=== PATIENT | female | born 1935 | race Caucasian/White ===

== ENCOUNTER → 2017-06-20 | Outpatient (CLI) | payer MEDICARE, OTHER ==
[~2017-06-20] MED LIST: ACTONEL 35 MG35 M1 PO; ASPIR 8181 MG PO; ATORVASTATIN CA40 MG PO; ATROVENT; BUSPIRONE HCL10 MG PO; CENTRUM SILVER1 EAC4 PO; CLOBETASOL PROP50 ML TOP; CLONIDINE HCL0.3 M3 PO; COLACE100 MG PO; DIOVAN 80 MG TA80 M1 PO; FISH OIL 1,001000 M2 PO; FISH OIL 1,2001 EAC4 PO; FLECAINIDE ACET50 M2 PO; FLONASE 0.05%50 MCG NASAL; FOLIC ACID1 MG PO; LANTUSSOLASTAR SUBQ; LEVEMIR SUBQ; LIPITOR 20 MG T20 M1 PO; LOPRESSOR100 M1 PO; MIRALAX17 GM PO; NORVASC5 MG PO; NOVOLOG100 UNIT/1 SUBQ; PIOGLITAZONE15 MG PO; PRINIVIL20 MG PO; PRINIVIL40 MG PO; PROLIA60 MG/1 ML SUBQ; TEMOVATE15 GM TP; TOPROL XL100 MG PO; TOPROL XL50 MG PO; TOUJEO SOL300 UNIT/1 SUBQ; VITAMIN D1000 UNI1 PO; VITAMIN D31000 UNI2 PO; XANAX 0.25 MG0.25 MG PO; XARELTO15 MG PO
--- NOTE | 2017-06-30 12:09 | SLEEP ---
[address] [address] SLEEP STUDY REPORT Name: TASHAROXANNE Ceballos Room: [facility]#: [id number] Admission: 06/20/17 Attend Phys: Elisabet Auguste Discharge: Date of : 31 Report #: [id number] THIS REPORT FOR: //name// CC: Shaka Auguste This study has been reviewed in its entirety by a board certified sleep specialist DATE OF SERVICE: 06/20/2017 ATTENDING PROVIDERS: Shaka Calero MD and Elisabet Auguste, nurse practitioner. The patient is an 81-year-old female with loud snoring and ringing in her ears. She has some restless sleep and some insomnia symptoms. Overnight sleep study indicated to evaluate for obstructive sleep apnea. The patient had overnight inhouse sleep study. Total sleep time was 3 hours and 18 minutes. Sleep phases, N1 was 6%, N2 was 94%. There was no N3 or REM sleep noted. The patient had minimal loud snoring. She did not have any O2 desaturations. She had no apneas, no obstructive or central apneas. She had an occasional arousal. No increase in limb movements noted. Mild O2 desaturation was noted 53% of time and her lowest O2 sat was 77%. Her average O2 sat was 90%. IMPRESSION: No significant obstructive sleep apnea. The patient did have nocturnal O2 desaturation down to 77%, spent most of time around 83-90% of her desaturation. There were 110 minutes of O2 desaturation, 53% of the total study. The patient may be a candidate for supplemental oxygen 2 liters at night. Other PFTs and workup for hypoxemia should be considered. No complications to the above procedure. <ELECTRONICALLY SIGNED> By: Jose Arce MD 06/30/17 1209 1444 1559Antthai Arce MD /nt
== END ==
LOC: M.SLEEPLAB 06-19 20:00
DX: G47.30 Sleep apnea, unspecified (principal); I12.9 Hypertensive chronic kidney disease with stage 1 through stage 4 chronic kidney disease, or unspecified chronic kidney disease; E11.22 Type 2 diabetes mellitus with diabetic chronic kidney disease; N18.3 Chronic kidney disease, stage 3 (moderate); F41.9 Anxiety disorder, unspecified; I48.0 Paroxysmal atrial fibrillation; E78.2 Mixed hyperlipidemia; Z79.899 Other long term (current) drug therapy; Z79.4 Long term (current) use of insulin

== ENCOUNTER → 2017-07-21 | Outpatient (CLI) | payer MEDICARE, OTHER | LOC: M.RAD 14:09 | DX: J90 Pleural effusion, not elsewhere classified (principal); J98.11 Atelectasis; I48.91 Unspecified atrial fibrillation; J92.9 Pleural plaque without asbestos; E11.8 Type 2 diabetes mellitus with unspecified complications ==

== ENCOUNTER → 2017-10-04 | Outpatient (CLI) | payer MEDICARE, OTHER ==
[2017-10-04 13:46] LABS: ABSOLUTE BASOPHILS 0.1 thou/uL (0.0-0.2); ABSOLUTE EOSINOPHILS 0.1 thou/uL (0.0-0.7); ABSOLUTE LYMPHOCYTES 1.2 thou/uL (0.8-5.3); ABSOLUTE MONOCYTES 0.6 thou/uL (0.0-1.2); BASOPHILS 1.1 %; HEMATOCRIT 34.5 % (37.0-47.0); HEMOGLOBIN 11.7 gm/dL (12.0-15.0); LYMPHOCYTES 17.5 %; MCH 31.7 pg (26.0-34.0); MCHC 33.7 g/dL (28.0-37.0); MCV 93.8 fL (80.0-100.0); MONOCYTES 8.6 %; MPV 7.9 fl. (7.2-11.1); NUCLEATED RBCS 0 /100WBC; PLATELET COUNT* 324 thou/uL (150-400); POLYS 70.8 %; RBC 3.68 mil/uL (4.20-5.00); RDW-CV 14.7 % (10.5-14.5); WBC 7.1 thou/uL (4.0-11.0)
[2017-10-05 02:07] LABS: GLYCOHEMOGLOBIN (HGB A1C) 7.6 % (4.8-5.6)
== END ==
LOC: M.LAB 13:09
PROVIDERS: Registered Nurse Diabetes Educator
DX: E11.8 Type 2 diabetes mellitus with unspecified complications (principal); I12.9 Hypertensive chronic kidney disease with stage 1 through stage 4 chronic kidney disease, or unspecified chronic kidney disease; N18.9 Chronic kidney disease, unspecified; E78.5 Hyperlipidemia, unspecified; I48.91 Unspecified atrial fibrillation; M81.0 Age-related osteoporosis without current pathological fracture; Z79.4 Long term (current) use of insulin; Z79.899 Other long term (current) drug therapy

== ENCOUNTER → 2017-10-09 | Outpatient (CLI) | payer MEDICARE, OTHER | LOC: M.RAD 14:09 | DX: M81.0 Age-related osteoporosis without current pathological fracture (principal); I10 Essential (primary) hypertension; E78.5 Hyperlipidemia, unspecified; E11.9 Type 2 diabetes mellitus without complications; I48.91 Unspecified atrial fibrillation; Z78.0 Asymptomatic menopausal state ==

== ENCOUNTER 2018-10-13 15:01 | Inpatient (IN) | payer MEDICARE, OTHER ==
[~2018-10-13] VITALS: Ht 162.6 cm; Wt 67.6 kg
[~2018-10-13 15:01] MED LIST changes: -ATORVASTATIN CA40 MG PO; -CLONIDINE HCL0.3 M3 PO; +CLONIDINE0.1 PO; -FLECAINIDE ACET50 M2 PO; +LIPITOR40 MG PO; -PRINIVIL40 MG PO; -XANAX 0.25 MG0.25 MG PO; +XANAX 0.5 MG0.5 MG PO
[2018-10-13] MEDS ORDERED: NIFEDIPINE ER30 M1 PO (16:09)
[2018-10-13 16:14] VITALS: BP 167/56
[2018-10-13] MEDS ORDERED: MIRALAX17 GM PO (16:25)
[2018-10-13] MEDS ORDERED: FISH OIL 1,001000 M2 PO (16:26)
[2018-10-13] MEDS ORDERED: LASIX 20 MG TAB20 MG PO (16:27)
[2018-10-13] MEDS ORDERED: FLECAINIDE ACET50 M2 PO (16:32)
--- NOTE | 2018-10-13 16:49 | NUR ---
VSS, ASSUMED CARE OF PT OF PT FROM EMS, ASSESSMENT PERFORMED AND CHARTED, FALL PRECAUTIONS IN PLACE, PT IS UP AD ANAHY AND IS ON RA AND IS TRACING AFIB ON THE MONITOR, SHE DENIES ANY PAIN. I HAVE REACHED OUT TO DR MENA ABOUT HER ARRIVAL, WILL FOLLOW WITH PLAN OFC ARE AND HOURLY ROUNDS,
[2018-10-13 17:24] LABS: MCH 31.5 pg (26.0-34.0); MCHC 33.5 g/dL (28.0-37.0); MCV 94.2 fL (80.0-100.0); MPV 7.9 fl. (7.2-11.1); RBC 3.5 mil/uL (4.20-5.00); RDW-CV 13.1 % (10.5-14.5); WBC 6.1 thou/uL (4.0-11.0)
[2018-10-13 17:36] LABS: CALCIUM 8.4 mg/dL (8.5-10.1); CREATININE 2.3 mg/dL (0.6-1.3); POTASSIUM 4.2 mmol/L (3.5-5.1)
--- NOTE | 2018-10-13 18:31 | NUR ---
ASSUSSMED CARE OF PT APPROX 1650. REPORT RECIEVED FROM ADMITING NURSE. PT DENIES PAIN. MEDICATION GIVEN CHARTED. PT NEEDS MET. FAMILY AT BEDSIDE
[2018-10-13 20:00] VITALS: BP 191/71
[2018-10-14] VITALS: BP 188/77
[2018-10-14 04:00] VITALS: BP 184/79
--- NOTE | 2018-10-14 04:28 | NUR ---
PT ALERT ORIENTED. UP AD ANAHY IN ROOM. TELEMETRY SHOWS SR/ST. INTERMITTENT BBB WITH 1ST DEGREE AVB. IN ROOM ON COT.
--- NOTE | 2018-10-14 04:51 | NUR ---
INITAL BP THIS SHIFT 191/71. DR MENA HERE ON UNIT.CONTINUE WITH HOME BP MEDS. NO PRN MEDS. TRACK TRENDS IN BP.
[2018-10-14 08:00] VITALS: BP 189/65
[2018-10-14 12:00] VITALS: BP 167/54
[2018-10-14 16:00] VITALS: BP 171/70
--- NOTE | 2018-10-14 17:46 | NUR ---
RECEIVED REPORT FROM MODESTO TONY. ASSUMED CARE OF PT AROUND 0730. PT A&O X4, A BIT FORGETFUL AT TIMES. VSS, THOUGH PT BRADYCARDIC THIS AFTERNOON AND THIS EVENING, HR DOWN TO 28 FOR BRIEF MOMENTS. PT ASYMPTOMATIC WITH BRADYCARDIA. DR MAURO PAGED DURING BOTH BRADYCARDIC TIMES, NO ORDERS THE FIRST TIME (AROUND 1300). ORDERS RECEVIED FOR MEDICATION CHAGNES THE SECOND TIME, AROUND 1740. AM ASSESSMENT AND VITALS COMPLETED CHARTED. MASTER AUTOMOTIVE GLASS TECHNICIAN IN PLACE TRACING SR TO SB WITH 1ST DEGREE AV BLOCK. AND OTHER VISITORS AT BEDSIDE OFF AND ON THROUGHOUT THE SHIFT. PT HAS DENIED PAIN OR DISCOMFORT THIS SHIFT. PT TOLERATING DIET. UP TO BATHROOM - ABLE TO HAVE BM, VOIDING WITHOUT ISSUE. PT CURRENTLY SITTING UP EATING DINNER. CALL LIGHT IS WITHIN REACH. HOURLY ROUNDING PERFORMED. LOW FALL RISK PRECAUTIONS IN PLACE.
[2018-10-14 20:00] VITALS: BP 186/68
[2018-10-15] VITALS (7 sets, daily range): BP systolic 120–199; BP diastolic 46–97
--- NOTE | 2018-10-15 06:37 | NUR ---
ASSUMED PT CARE AT 1930. NURSING ASSESMENT COMPLETED AT START OF SHIFT. PT DENIES PAIN. HYDROGEN CELL TENDER IN PLACE, TRACING SB 1D. HOURLY ROUNDING COMPLETED, CALL LIGHT WITHIN REACH. NPO FOR RENAL ULTRASOUND. PT FORGETFUL/EPISODES OF CONFUSION THIS SHIFT. PT REORIENTED TO SITUATION.
--- NOTE | 2018-10-15 12:36 | 2DMMODE ---
[place] [address] 2 D/M-MODE ECHOCARDIOGRAM Name: ROXANNE CORDOVA Room: [address] IN [facility]#: [id number] Admission: 10/13/18 Attend Phys: Zahraa Zaragoza, Discharge: Date of : 33 Date of Service: 10/15/18 1236 Report #: [id number] THIS REPORT FOR: //name// APPROVED REPORT Study performed: 10/15/2018 10:48:48 EXAM: Comprehensive 2D, Doppler, and color-flow Echocardiogram Patient Location: In-Patient Room #: 220 Status: routine BSA: 1.70 HR: 61 bpm BP: 120/60 mmHg Rhythm: NSR Other Information Study Quality: Good Indications Atrial Fibrillation 2D Dimensions IVSd: 11.39 (7-11mm) LVOT Diam: 17.53 (18-24mm) LVDd: 41.99 mm PWd: 9.39 (7-11mm) Ascending Ao: 31.47 (22-36mm) LVDs: 24.93 (25-40mm) Aortic Root: 26.84 mm Volumes Left Atrial Volume (Systole) LA ESV Index: 32.20 mL/m2 Aortic Valve AoV Peak Klever.: 1.34 m/s AO Peak Gr.: 7.16 mmHg LVOT Max P.54 mmHg AO Mean Gr.: 4.09 mmHg LVOT Mean P.23 mmHg LVOT Max V: 1.07 m/s AO V2 VTI: 36.37 cm LVOT Mean V: 0.69 m/s BATOOL (VTI): 2.05 cm2 LVOT V1 VTI: 30.85 cm Mitral Valve MV Decel. Time: 221.66 ms MV PHT: 64.28 ms MVA (PHT): 3.42 [place] [address] 2 D/M-MODE ECHOCARDIOGRAM Name: TASHAROXANNE J Room: [address] IN [facility].#: [id number] Admission: 10/13/18 Attend Phys: Zahraa Zaragoza, Discharge: Date of : 33 Date of Service: 10/15/18 1236 Report #: [id number] TDI Medial E' Klever.: 0.07 m/s Lateral E' Klever.: 0.07 m/s Pulmonary Valve PV Peak Klever.: 0.85 m/s PV Peak Gr.: 2.87 mmHg Tricuspid Valve RAP Estimate: 5.00 mmHg TR Peak Gr.: 28.92 mmHg RVSP: 33.00 mmHg PA Pressure: 33.00 mmHg Left Ventricle The left ventricle is normal size. There is normal LV segmental wall motion. There is normal left ventricular wall thickness. Left ventricular systolic function is normal. The left ventricular ejection fraction is within the normal range. LVEF is 60%. The left ventricular diastolic function is normal. Right Ventricle The right ventricle is normal size. The right ventricular systolic function is normal. Atria The left atrium size is normal. The right atrium size is normal. Aortic Valve Mild aortic valve sclerosis. No aortic regurgitation is present. There is no aortic valvular stenosis. Mitral Valve The mitral valve is normal in structure. Mild mitral regurgitation. No evidence of mitral valve stenosis. Tricuspid Valve The tricuspid valve is normal in structure. Trace tricuspid regurgitation. Mild pulmonary hypertension. Pulmonic Valve The pulmonary valve is normal in structure. There is no pulmonic valvular regurgitation. Great Vessels The aortic root is normal in size. IVC [place] [address] 2 D/M-MODE ECHOCARDIOGRAM Name: ROXANNE CORDOVA Room: [address]#: [id number] Admission: 10/13/18 Attend Phys: Zahraa Zaragoza, Discharge: Date of : 33 Date of Service: 10/15/18 1236 Report #: [id number] collapses >50% with inspiration. Pericardium There is no pericardial effusion. <Conclusion> The left ventricle is normal size. There is normal left ventricular wall thickness. Left ventricular systolic function is normal. The left ventricular ejection fraction is within the normal range. LVEF is 60%. The right ventricle is normal size. The left atrium size is normal. Mild aortic valve sclerosis. No aortic regurgitation is present. There is no aortic valvular stenosis. The mitral valve is normal in structure. Mild mitral regurgitation. The tricuspid valve is normal in structure. IVC is normal in size and collapses >50% with inspiration. There is no pericardial effusion. There is normal LV segmental wall motion. <ELECTRONICALLY SIGNED> By: David Mclain MD, [facility] 10/15/18 1236 1236 1236 David Mclain MD, FACC /INF
--- NOTE | 2018-10-15 14:11 | NUR ---
Pt is A&O. Resides at home with her . Independent. Pt has a walker and cane at home that she used post broken knee cap, Pt does not use either of them at this time. Hx of [facility]. No hx of SNF. Goal is home at [place]. No needs anticipated. Following.
--- NOTE | 2018-10-15 20:10 | NUR ---
I ASSUMED CARE OF THE PATIENT AT 0700. SHE IS ALERT AND ORIENTED X4 AND IS UP AD ANAHY. HER IS AT THE BEDSIDE. BED IS IN THE LOW LOCKED POSITION ADN CALL LIGHT IS IN REACH. HOURLY ROUNDING IS COMPLETED AND PATIENT NEEDS ARE MET. PAIN IS DENIED. HEARTRATE IS LOW MOST OF THE DAY. BLOOD SUGAR IS MANAGED WITH ACHS MEDS. RENAL ULTRASOUND WAS COMPLETED TODAY. MOST MEDS HAVE BEEN HELD. POSSIBLE PACEMAKER PLACEMENT TOMORROW. WILL CONTINUE TO MONITOR.
[2018-10-16] VITALS (8 sets, daily range): BP systolic 145–177; BP diastolic 50–86
--- NOTE | 2018-10-16 04:59 | NUR ---
PT ALERT ORIENTED. ANXIOUS RE: HEART RATE. PT AND COMING TO [place] STATION APPROX 5 TIMES TO CHECK ON HEART RATE. XANAX GIVEN HS. TELEMETRY SHOW ST/SR/SB 1ST DEGREE AVB. PT NPO SINCE [place] FOR PACE MAKER PLACEMENT REPORTED PER DAY SHIFT.
--- NOTE | 2018-10-16 09:10 | NUR ---
ASSUMED CARE OF PT AT 0730. PT RESTING IN BED. AT BEDSIDE. PT A&0X3, FORGETFUL AND CONFUSED AT TIMES. EASILY REDIRECTABLE. PT TRACING SB WITH FIRST DEGREE, HEART RATE IN THE 50'S THIS AM. PT ON RA SAT 97%. PT DENIES ANY PAIN OR SHORTNESS OF BREATH AT THIS TIME. PT UP WITH 1 ASSIST SBA. PT NPO AT THIS TIME FOR CARDIOLOGY CONSULT. PT GOAL FOR TODAY IS MAINTAIN SBP LESS THAN 150 AND HEART RATE ABOVE 50. AM ASSESSMENT CHARTED. MEDICATIONS PER MAY. PT REPOSITIONS SELF. HOURLY ROUNDING OBSERVED. BED IN LOW POSITION. CALL LIGHT WITHIN REACH. WILL CONTINUE PLAN OF CARE.
--- NOTE | 2018-10-16 09:25 | EKG ---
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: : 1935 Requested By: Zahraa Zaragoza Order Number: [id number] Reading MD: José Miguel Gillette Measurements Intervals [place] Rate: 57 P: -51 KS: 194 QRS: 63 QRSD: 114 T: 56 QT: 496 QTc: 483 Interpretive Statements Sinus or ectopic atrial rhythm Borderline intraventricular conduction delay Compared to ECG 02/03/2017 08:05:26 Ectopic atrial rhythm now present Sinus rhythm no longer present T-wave abnormality no longer present Electronically Signed On 10-16-2018 9:25:31 CDT by José Miguel Gillette [email or web address] <ELECTRONICALLY SIGNED> By: José Miguel Gillette MD, FACC 10/16/18 0925 1716 1716 José Miguel Gillette MD, [facility] /EPI
--- NOTE | 2018-10-16 09:27 | EKG ---
[place] [address] ELECTROCARDIOGRAM REPORT Name: STEPHANIEPJ KINGE Tucker Room: [address] ADM IN M.R.#: [id number] Admission: 10/13/18 Attend Phys: Zahraa Zaragoza MD Discharge: Date of : 33 Report #: [id number] THIS REPORT FOR: //name// [facility] Test Date: 2018-10-14 Test Time: 00:55:29 Pat Name: ROXANNE CORDOVA Department: Room: [address] Gender: F Manager Social: [id number] : 1935 Requested By: Zahraa Zaragoza Order Number: [id number] Eleuterio MD: José Miguel Gillette Measurements Intervals [place] Rate: 57 P: 94 UT: 47 QRS: 66 QRSD: 114 T: 209 QT: 412 QTc: 401 Interpretive Statements Sinus rhythm Short UT interval Nonspecific T-wave flattening Compared to ECG 02/03/2017 08:05:26 Short UT interval now present Electronically Signed On 10-16-2018 9:27:49 CDT by José Miguel Gillette [email or web address] <ELECTRONICALLY SIGNED> By: José Miguel Gillette MD, FACC 10/16/18 0927 0055 0055 José Miguel Gillette MD, [facility] /EPI
--- NOTE | 2018-10-16 10:37 | EKG ---
[place] [address] ELECTROCARDIOGRAM REPORT Name: ROXANNE CORDOVA Room: [address] ADM IN M.R.#: [id number] Admission: 10/13/18 Attend Phys: Zahraa Zaragoza MD Discharge: Date of : 33 Report #: [id number] THIS REPORT FOR: //name// [facility] Test Date: 2018-10-15 Test Time: 17:27:07 Pat Name: ROXANNE CORDOVA Department: Room: [address] Gender: F Vp Clinical Research: : 1935 Requested By: José Miguel Gillette Order Number: [id number] Eleuterio MD: José Miguel Gillette Measurements Intervals [place] Rate: 40 P: NV: QRS: 52 QRSD: 129 T: 37 QT: 573 QTc: 468 Interpretive Statements sinus bradycardia with sinus node dysfunction and junctional escape Compared to ECG 02/03/2017 08:05:26 T-wave abnormality no longer present Electronically Signed On 10-16-2018 10:37:12 CDT by José Miguel Gillette [email or web address] <ELECTRONICALLY SIGNED> By: José Miguel Gillette MD, [facility] 10/16/18 1037 1727 172 José Miguel Gillette MD, [facility] /EPI
[2018-10-16 11:12] LABS: APTT 28.3 Seconds (25.0-31.3); PROTIME 10.4 Seconds (9.20-11.50)
[2018-10-16 11:16] LABS: CREATININE 2.4 mg/dL (0.6-1.3); POTASSIUM 4.2 mmol/L (3.5-5.1)
--- NOTE | 2018-10-16 18:04 | NUR ---
OBTAINED REPORT FROM JARETH RN, PT OFF UNIT FOR PACEMAKER PLACEMENT. WILL PASS REPORT ON TO OPERATING THEATRE TECHNICIAN.
--- NOTE | 2018-10-16 18:14 | CON ---
[address] [address] CONSULTATION Name: TASHAROXANNE Tucker Room: [address] IN .R.#: [id number] Admission: 10/13/18 Attend Phys: Zahraa Zaragoza MD Discharge: Date of : 33 Report #: [id number] THIS REPORT FOR: //name// CC: Shaka Zaragoza INDICATION: Recurrent atrial fibrillation and hypertension. HISTORY OF PRESENT ILLNESS: The patient is a very pleasant 82-year-old white female, who presented to [facility] with recurrent atrial fibrillation. She was transferred to [place] for further treatment. She initially had a rapid ventricular response rate to her atrial fibrillation. She did convert to sinus rhythm briefly on diltiazem drip. She became somewhat bradycardic and this was discontinued. At present, she is in atrial fibrillation with a fairly controlled ventricular response rate. She has been on flecainide for rhythm control and chronically anticoagulated with Xarelto. She is having no bleeding problems. She is presently stable. She denies chest pain. She is not having any significant shortness of breath. She does have rather significant renal insufficiency as well. During hospitalization and prior to hospitalization, the patient has been noted to be significantly hypertensive. We are adjusting medications. PAST MEDICAL HISTORY: 1. Paroxysmal atrial fibrillation. 2. Appendiceal carcinoma status post resection. 3. Arthritis. 4. Chronic diastolic heart failure. 5. Chronic renal insufficiency. 6. Type 2 diabetes mellitus. 7. Hypothyroidism. 8. Glaucoma. 9. Hypertension. 10. Hyperlipidemia. 11. History of iron deficiency anemia. 12. Nephrolithiasis. 13. Osteoporosis. 14. History of peptic ulcer. PAST SURGICAL HISTORY: 1. Aortic bifurcation stent graft. 2. Cholecystectomy. 3. Hysterectomy. FAMILY HISTORY: Positive for coronary artery disease. SOCIAL HISTORY: The patient quit smoking over 40 years ago. [place] [address] CONSULTATION Name: ROXANNE CORDOVA Room: [address]#: [id number] Admission: 10/13/18 Attend Phys: Zahraa Zaragoza MD Discharge: Date of : 33 Report #: [id number]. REVIEW OF SYSTEMS: A 14-point review of systems is otherwise unremarkable. PHYSICAL EXAMINATION: VITAL SIGNS: Stable. Blood pressure 167/54, pulse in the 90s and irregular. GENERAL: This is a pleasant elderly female in no distress. Mood and affect appropriate. HEENT: The patient is wearing glasses. Extraocular muscles intact. Mucous membranes moist. NECK: Shows no jugular venous distention. There are no carotid bruits. CHEST: Reveals clear lung gunderson without wheezes or rales. CARDIOVASCULAR: Reveals an irregularly irregular rhythm without gallop or murmur. ABDOMEN: Reveals normal bowel sounds. The abdomen is soft, nontender. EXTREMITIES: Shows no edema. DIAGNOSTIC DATA: A 12-lead EKG on arrival shows sinus bradycardia without acute ST or T-wave abnormalities. Telemetry currently showing atrial fibrillation with a relatively controlled ventricular response. LABORATORY DATA: Labs are reviewed. Sodium 140, potassium 4.2, chloride 106, bicarbonate 27, BUN 40, creatinine 2.3, serum glucose 305, calcium 8.4. LFTs within normal limits. Troponin less than 0.06. White blood cell count 6.1, hemoglobin 11.0, MCV 94.2, platelet count 282,000. Chest x-ray shows mild air trapping consistent with COPD. There is some mild atelectasis. IMPRESSION AND RECOMMENDATIONS: 1. Recurrent atrial fibrillation. At this point in time, I will give a bolus of flecainide in an attempt to cardiovert and then increase her daily dose 200 mg b.i.d. Continue chronic anticoagulation with Xarelto. 2. Hypertension. The patient's blood pressure is improving with resumption of home medications. We will follow and make adjustments if necessary. 3. Chronic diastolic heart failure, appears well compensated at this time. 4. Hypercoagulable state due to atrial fibrillation. The patient is chronically anticoagulated. 5. Hyperlipidemia. Continue atorvastatin at current dose. 6. Type 2 diabetes mellitus per primary physician. 7. Non-rheumatic mitral valve insufficiency, repeating echocardiogram at this [address] [place] [address] CONSULTATION Name: STEPHANIEFERNANDOROXANNE Tucker Room: [address] IN [facility].#: [id number] Admission: 10/13/18 Attend Phys: Zahraa Zaragoza MD Discharge: Date of : 33 Report #: [id number] time. 8. Chronic anticoagulation, presently stable. <ELECTRONICALLY SIGNED> By: José Miguel Gillette MD, FACC 10/16/18 1814 1315 1533Michael Jabier Gillette MD, FACC /nt
[2018-10-17] VITALS: BP 135/75
--- NOTE | 2018-10-17 04:39 | NUR ---
PATIENT PROGRESSING TOWARDS GOALS: VSS ON ROOM AIR. PATIENT RECEIVED TYLENOL FOR PAIN AT PACEMAKER SITE, RELIEF OBTAINED. PATIENT FORGETFUL AND CONFUSED AT TIMES, REDIRECTED EASILY. SHOULDER IMMOBILIZER ON FOR POST PACEMAKER PRECAUTIONS. PATIENT REMAINS IN AFIB, RATE CONTROLLED. CALL LIGHT WITHIN REACH
[2018-10-17 05:15] VITALS: BP 142/65
[2018-10-17 05:19] VITALS: BP 142/65
[2018-10-17 08:00] VITALS: BP 119/49
[2018-10-17 10:58] VITALS: BP 119/49
--- NOTE | 2018-10-17 12:19 | NUR ---
RECEIVED REPORT AND ASSUMED CARE OF PT @ 8739.PT IS A/O X3,VSS,TRACING V PACED ON THE MONITOR.LEFT ARM SECURE IN IMMOBILIZER DUE TO PACEMAKER PLACEMENT.IV SECURE AND PATENT, SALINE LOCKED.PT AND ARE ANXIOUS TO DISCHARGE.NO C/O PAIN.PT LEFT RESTING IN ROOM WITH CALL LIGHT AND FALL PRECAUTIONS IN PLACE. PT OK FOR DISCHARGE.PAPERWORK COMPLETED AND GIVEN TO THE PT.SCRIPTS GIVEN WITH EDUCATION.POST PACEMAKER PLACEMENT EDUCATION GIVEN.IV REMOVED.HEART MONITOR REMOVED AND RETURNED TO THE NURSING STATION.ALL PERSONAL BELONGINGS PACKED AND TAKEN WITH THE PT.PT WANTS TO STAY TO EAT LUNCH THEN WILL BE WHEELED OUT TO PERSONAL VEHICLE.
[2018-10-17 12:36] VITALS: BP 103/45
--- NOTE | 2018-10-18 09:01 | EKG ---
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 : 1935 Requested By: José Miguel Gillette Order Number: [id number] Eleuterio MD: José Miguel Gillette Measurements Intervals [place] Rate: 85 P: VT: QRS: 73 QRSD: 122 T: -30 QT: 435 QTc: 518 Interpretive Statements Atrial fibrillation Nonspecific intraventricular conduction delay Borderline repolarization abnormality Baseline wander in lead(s) V3 Compared to ECG 10/15/2018 17:27:07 AV block, advanced (high-grade) now present Intraventricular conduction delay now present Sinus bradycardia no longer present Electronically Signed On 10-18-2018 9:01:16 CDT by José Miguel Gillette [email or web address] <ELECTRONICALLY SIGNED> By: José Miguel Gillette MD, FACC 10/18/18900 0 0 José Miguel Gillette MD, FAC /EPI
--- NOTE | 2018-10-18 10:27 | CARD ---
[address] [address] CARDIAC CATH REPORT Name: STEPHANIEJEREMYJOSUÉROXANNE Tucker Room: [address] IN [facility]#: [id number] Admission: 10/13/18 Attend Phys: Zahraa Zaragoza MD Discharge: 10/17/18 Date of : 33 Report #: [id number] THIS REPORT FOR: //name// APPROVED REPORT Study performed: 10/16/2018 16:53:18 Patient Status: In-Patient Room #: 220 Event Personnel: José Miguel Gillette Industrial Health Engineer, Latanya Farris RN Sap Analyst, Héctor NewtonIS Scrub, Ronel Lanier Monitor Exam: Insertion of Dual Chamber Permanent Pacemaker The patient is a 82 year-old female with a history of . Conscious Sedation Start time: 1720 End Time: 1750 Fentanyl 50 mcg Versed 2.0 mg Implanted Devices: Biotronik Eluna 8 DRT pro-MRI, model #989485, serial #[id number] dual-chamber pulse generator. Biotronik Solia S 53, model #554833, serial #[id number] ventricular lead. Biotronik Solia S 45, model #763549, serial #[id number] atrial lead. Procedure The patient underwent informed consent. We discussed the details of the procedure including the risks, which include, but not limited to bleeding, infection, vascular damage, cardiac perforation, and pneumothorax. After informed consent was obtained the area of the left chest was prepped and draped in sterile fashion. Local anesthesia was achieved with 1% lidocaine. After an initial incision was made a device pocket was formed over the left pectoralis muscle using electrocautery and blunt dissection. Next using a micropuncture kit the left subclavian vein was accessed percutaneously. Ultimately a safety J guidewire was advanced to the level of the right atrium under fluoroscopic guidance. Utilizing the micropuncture kit a second time the subclavian vein was then accessed. A second safety J guidewire was advanced to the right atrium under fluoroscopic guidance. Next a 7 Urdu tear-away introducer was advanced over one of the guidewires. The dilator and guidewire were removed and a ventricular lead advanced to a secure position within the right ventricular apex. The lead was actively fixed. Thresholds were checked and deemed to be satisfactory. Adequate sensing was [place] [address] CARDIAC CATH REPORT Name: ROXANNE CORDOVA Room: [address]#: [id number] Admission: 10/13/18 Attend Phys: Zahraa Zaragoza MD Discharge: 10/17/18 Date of : 33 Report #: [id number] diaphragmatic stimulation with maximum output pacing. The tear-away introducer was then removed. Next a second 7 Urdu tear-away introducer was advanced over the remaining guidewire. The dilator and guidewire were removed and an atrial lead advanced to the right atrial appendage under fluoroscopic guidance. He was actively fixed. Thresholds were checked and deemed to be satisfactory. Adequate sensing was assured. There was no phrenic nerve stimulation with maximum output pacing. Tear-away introducer was then removed. Next after adequate slack was assured and the atrial and ventricular leads and device pocket using the designated cuff and 0 silk suture. The device pocket was then flushed with antibiotic solution. A dual-chamber pulse generator was then attached to the atrial and ventricular leads. The generator and redundant lead were then placed within the device pocket. The deep tissues were closed with interrupted stitches of 2-0 Vicryl. The skin incision was then closed with a single subcuticular stitch of 4-0 Vicryl. Several Steri-Strips were placed across the incision. A Telfa pad dressing was then covered with a Tegaderm. The patient tolerated the procedure well without complication. Return to her room in stable condition. Electrode Parameters P Wave: 430 mV R Wave: 15.7 mV Ventricular Threshold: 1.2 V at 0.40 ms. Atrial Resistance: 429 Ventricular Resistance: 760 ohms Findings Specimens Removed: No Estimated Blood Loss: 0 Conclusion 1. Sick sinus syndrome. 2. Successful placement of a dual-chamber pacemaker with atrial and ventricular lead placement. Recommendations 1. Follow-up site check in one week. 2. Follow-up device interrogation in 2 months. <ELECTRONICALLY SIGNED> By: José Miguel Gillette MD, [facility] 10/18/18 1026 1026 1026[facility] Jabier Gillette MD, FAC /INF
== END 2018-10-17 12:57 | disposition home or self-care (01) | DRG 242 ==
LOC: M.2W 15:01
PROVIDERS: Internal Medicine; ADMIT Internal Medicine
PROC: 02HK3JZ Insertion of Pacemaker Lead into Right Ventricle, Percutaneous Approach (ICD-10-PCS; principal; 2018-10-16)
PROC: 02H63JZ Insertion of Pacemaker Lead into Right Atrium, Percutaneous Approach (ICD-10-PCS; principal; 2018-10-16)
PROC: 0JH606Z Insertion of Pacemaker, Dual Chamber into Chest Subcutaneous Tissue and Fascia, Open Approach (ICD-10-PCS; principal; 2018-10-16)
DX: I49.5 Sick sinus syndrome (principal); G92 Toxic encephalopathy; I13.0 Hypertensive heart and chronic kidney disease with heart failure and stage 1 through stage 4 chronic kidney disease, or unspecified chronic kidney disease; N18.4 Chronic kidney disease, stage 4 (severe); I50.32 Chronic diastolic (congestive) heart failure; D68.59 Other primary thrombophilia; I48.0 Paroxysmal atrial fibrillation; M19.90 Unspecified osteoarthritis, unspecified site; E11.22 Type 2 diabetes mellitus with diabetic chronic kidney disease; E03.9 Hypothyroidism, unspecified; H40.9 Unspecified glaucoma; E78.5 Hyperlipidemia, unspecified; M81.0 Age-related osteoporosis without current pathological fracture; I34.0 Nonrheumatic mitral (valve) insufficiency; D64.9 Anemia, unspecified; Z88.1 Allergy status to other antibiotic agents; Z90.710 Acquired absence of both cervix and uterus; Z90.49 Acquired absence of other specified parts of digestive tract; Z79.01 Long term (current) use of anticoagulants; Z82.49 Family history of ischemic heart disease and other diseases of the circulatory system; Z87.442 Personal history of urinary calculi; Z87.891 Personal history of nicotine dependence; Z88.8 Allergy status to other drugs, medicaments and biological substances; R59.0 Localized enlarged lymph nodes; I16.0 Hypertensive urgency

== ENCOUNTER 2018-10-22 09:23 | Inpatient (IN) | payer MEDICARE, OTHER ==
[~2018-10-22] VITALS: Ht 162.6 cm; Wt 68.5 kg
--- NOTE | ~2018-10-22 | CON ---
[address] [address] CONSULTATION Name: TASHAROXANNE J Room: [address] IN ..#: [id number] Admission: 10/22/18 Attend Phys: Zahraa Zaragoza MD Discharge: Date of : 33 Report #: [id number] THIS REPORT FOR: //name// CC: Shaka Zaragoza [facility] DATE OF SERVICE: 10/23/2018 REQUESTING PHYSICIAN: Dr. Zaragoza. REASON FOR CONSULTATION: Acute kidney injury. HISTORY OF PRESENT ILLNESS: The patient is a very pleasant 82-year-old female very well known to me as she follows with me in my office for her chronic kidney disease stage 4. She presents with complaints of not feeling well, having some dyspnea. In the Emergency Room, she was found to be in atrial fibrillation again and blood pressure is uncontrolled. Unfortunately, her blood pressure is very difficult to control. She is on 5 blood pressure medications. The creatinine on admission was 3.1 and today 3.4, this is above her baseline. Baseline creatinine around 2.4. PAST MEDICAL HISTORY: 1. Chronic kidney disease stage 4. 2. Hypertension. 3. Diabetes mellitus type 2. 4. Atrial fibrillation. 5. Cardiomyopathy. SOCIAL HISTORY: She does not smoke cigarettes, does not drink alcohol. MEDICATIONS: Prior to admission reviewed. From my standpoint, she was on lisinopril 20 mg twice a day, metoprolol XL 100 mg twice a day, clonidine, nifedipine, and furosemide. Here in the hospital. Her clonidine was increased to 0.2 mg twice a day. REVIEW OF SYSTEMS: Positive for the symptoms as I mentioned earlier, otherwise all systems reviewed and negative. SOCIAL HISTORY: Noncontributory. PHYSICAL EXAMINATION: GENERAL: Awake, alert, and oriented. VITAL SIGNS: Blood pressure 145/67, heart rate 66, respiratory rate 14, [place] [address] CONSULTATION Name: ROXANNE CORDOVA Room: [address] IN [facility]#: [id number] Admission: 10/22/18 Attend Phys: Zahraa Zaragoza MD Discharge: Date of : 33 Report #: [id number] HEENT: Pupils round. NECK: Supple. LUNGS: Decreased air movements. CARDIOVASCULAR: Regular rate. ABDOMEN: Soft. EXTREMITIES: Lower extremities, trace edema. LABORATORY DATA: Her chest x-ray showed some evidence of congestive heart failure. She did have some small bilateral pleural effusion, pulmonary vascular congestion. Renal ultrasound showed mild cortical thinning bilaterally. No evidence of hydronephrosis or obstruction. ASSESSMENT: 1. Acute kidney injury on top of the chronic kidney disease that could be due to poor perfusion because of the chronic atrial fibrillation. She also has poorly controlled hypertension. 2. Chronic kidney disease stage 4. 3. Diabetes mellitus type 2. 4. Hypertension. 5. Chronic atrial fibrillation. PLAN: 1. Stop her lisinopril. 2. Make sure blood pressure is controlled. 3. Follow on chest x-ray and make sure her congestive heart failure is compensated. We may increase her Lasix if necessary. 3. Follow labs. Thank you very much for asking my opinion on acute kidney injury of the patient. By: 1109 [id number] Brady MD /nt
[~2018-10-22 09:23] MED LIST changes: +FLECAINIDE ACET50 M2 PO; +LASIX 20 MG TAB20 MG PO; +NIFEDIPINE ER30 M1 PO
[2018-10-22 09:24] VITALS: BP 183/97
[2018-10-22 09:59] LABS: HEMATOCRIT 31.9 % (37.0-47.0); HEMOGLOBIN 10.5 gm/dL (12.0-15.0); MCH 31.9 pg (26.0-34.0); MCV 96.7 fL (80.0-100.0); MPV 9.1 fl. (7.2-11.1); NUCLEATED RBCS 0 /100WBC; PLATELET COUNT* 278 thou/uL (150-400); RDW-CV 13.4 % (10.5-14.5); WBC 12.5 thou/uL (4.0-11.0)
[2018-10-22 10:07] LABS: CREATININE 3.1 mg/dL (0.6-1.3); POTASSIUM 5.5 mmol/L (3.5-5.1)
[2018-10-22 10:19] LABS: TOTAL BILIRUBIN 0.8 mg/dL (<0.1-1.0); TOTAL PROTEIN 6.6 g/dL (6.4-8.2); TROPONIN-I LEVEL 0.1 ng/mL (<0.06)
[2018-10-22 10:21] LABS: INR 1.1; PROTIME 10.9 Seconds (9.20-11.50)
[2018-10-22 10:42] LABS: ABSOLUTE LYMPHOCYTES 0.4 thou/uL (0.8-5.3); ABSOLUTE MONOCYTES 0.1 thou/uL (0.0-1.2); PLATELET ESTIMATE ADEQUATE
[2018-10-22 11:58] VITALS: BP 203/117
[2018-10-22 12:10] VITALS: BP 176/84
[2018-10-22 12:44] VITALS: BP 149/83
[2018-10-22 16:00] VITALS: BP 168/87
--- NOTE | 2018-10-22 16:25 | 2DMMODE ---
[place] [address] 2 D/M-MODE ECHOCARDIOGRAM Name: ROXANNE CORDOVA Room: 228-P [facility] IN [facility]#: [id number] Admission: 10/22/18 Attend Phys: Zahraa Zaragoza, Discharge: Date of : 31 Date of Service: 10/22/18 1624 Report #: [id number] THIS REPORT FOR: //name// APPROVED REPORT Study performed: 10/22/2018 15:05:39 EXAM: Limited 2D, Doppler, and color-flow Echocardiogram Patient Location: In-Patient Room #: 228 Status: routine BSA: 1.70 HR: 77 bpm BP: 149/83 mmHg Rhythm: NSR Other Information Study Quality: Good Indications Congestive Heart Failure Dyspnea re-evaluate EF Volumes Left Atrial Volume (Systole) LA ESV Index: 37.80 mL/m2 Tricuspid Valve RAP Estimate: 10.00 mmHg TR Peak Gr.: 59.16 mmHg RVSP: 69.00 mmHg PA Pressure: 69.00 mmHg Left Ventricle The left ventricle is normal size. Regional wall motion abnormalities are noted. apical akinesis There is normal left ventricular wall thickness. Left ventricular systolic function is mildly decreased. LVEF is 40-45%. Right Ventricle The right ventricle is normal size. The right ventricular systolic function is normal. Pacemaker lead is present in the right ventricle. Atria Left atrium is mildly dilated. Right [place] [address] 2 D/M-MODE ECHOCARDIOGRAM Name: ROXANNE CORDOVA Room: [address] IN M.R.#: [id number] Admission: 10/22/18 Attend Phys: Zahraa Zaragoza, Discharge: Date of : 31 Date of Service: 10/22/18 1624 Report #: [id number] Aortic Valve Mild aortic valve sclerosis. No aortic regurgitation is present. There is no aortic valvular stenosis. Mitral Valve The mitral valve is normal in structure. Moderate mitral regurgitation. Tricuspid Valve The tricuspid valve is normal in structure. Moderate tricuspid regurgitation. estimated pa pressure 70 mm Hg Pulmonic Valve The pulmonary valve is normal in structure. Great Vessels The aortic root is normal in size. IVC is dilated. Pericardium There is no pericardial effusion. <Conclusion> LVEF is 40-45%. Regional wall motion abnormalities are noted. apical akinesis Left atrium is mildly dilated. Moderate mitral regurgitation. Moderate tricuspid regurgitation. estimated pa pressure 70 mm Hg <ELECTRONICALLY SIGNED> By: Shaka Zambrano MD, [facility] 10/22/18 1624 1624 1624 Shaka Zambrano MD, FACC /INF
--- NOTE | 2018-10-22 17:17 | EKG ---
[place] [address] ELECTROCARDIOGRAM REPORT Name: TASHAROXANNE Ceballos Room: [address] ADM IN ..#: [id number] Admission: 10/22/18 Attend Phys: Zahraa Zaragoza MD Discharge: Date of : 33 Report #: [id number] THIS REPORT FOR: //name// [facility] ED Test Date: 2018-10-22 Test Time: 09:38:34 Pat Name: ROXANNE CORDOVA Department: Room: 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 : 1935 Requested By: Rehan Griffin Order Number: [id number] MD: Shaka Zambrano Measurements Intervals [place] Rate: 103 P: 0 CT: 144 QRS: 97 QRSD: 136 T: -61 QT: 351 QTc: 460 Interpretive Statements Atrial fibrillation Ventricular paced beats Baseline wander in lead(s) III Compared to ECG 10/17/2018 05:21:08 Ventricular paced beats noted Electronically Signed On 10-22-2018 17:17:30 CDT by Shaka Zambrano [email or web address] <ELECTRONICALLY SIGNED> By: Shaka Zambrano MD, FACC 10/22/18 1717 0938 0938 Shaka Zambrano MD, [facility] /EPI
--- NOTE | 2018-10-22 18:00 | NUR ---
PT ADMITTED TO TELEMETRY. PT A/O X'S 4. NO C/O PAIN. OXYGEN 89% ON 4L NC. PT TITRATED UP TO 6L NC. ADMISSION ASSESSMENT COMPLETED. PT VOIDED IN BATHROOM. UNABLE TO MEASURE. PT HAD SMALL BM. BLOOD GLUCOSE 429. 26 UNITS ADMINISTERED. NOTIFIED. PT HAS LEFT ARM GLUCOMETER. AT ADMISSION TEARFUL, ANXIOUS AND STATED IT UPSETS HIM WHEN PT'S BLOOD PRESSURE IS TAKEN. FAMILY HAS MEDICAL TRANSCRIPTIONIST BILL [phone] AND AVAILABLE TO HELP COPE. PT IS CALM, COOPERATIVE. PT REPORTS NOT HAVING MUCH OF AN APPETITE. NUTRITION ENCOURAGED.
[2018-10-22 20:00] VITALS: BP 132/60
[2018-10-23 00:26] VITALS: BP 127/67
--- NOTE | 2018-10-23 01:10 | NUR ---
PT ALERT ORIENTED QUESTIONS ANSWERED APPROPRIATELY. WHEN ASKED HOW DO YOU FEEL PT LOOKS AT AND ASKES HOW DO I FEEL. DENIES PAIN. TELEMETRY SHOWS V-PACED. L CHEST PACE MAKER INCISION HEALING WITH STERI STRIPS IN PLACE. O2 AT 6 LITERS NC. BLOOD GLUCOSE 266 AT HS. 12 UNITS LISPRO GIVEN. PT CALLED OUT AT 0030 AND ASKED WHY AM I SO SWEATY. BLOOD GLUCOSE CHECKED WAS 57. TO JUICE AND CRACKERS GIVEN. IN ROOM ON COT.
[2018-10-23 04:00] VITALS: BP 147/57
--- NOTE | 2018-10-23 04:29 | NUR ---
RECHECK OF BLOOD GLUCOSE 117. PT RESTING QUIETLY.
[2018-10-23 05:20] LABS: HEMATOCRIT 26.7 % (37.0-47.0); HEMOGLOBIN 9.1 gm/dL (12.0-15.0); MCH 32.4 pg (26.0-34.0); MCHC 33.9 g/dL (28.0-37.0); MCV 95.4 fL (80.0-100.0); MPV 8.7 fl. (7.2-11.1); RBC 2.8 mil/uL (4.20-5.00); RDW-CV 13.3 % (10.5-14.5); WBC 10.9 thou/uL (4.0-11.0)
[2018-10-23 05:46] LABS: ALBUMIN 2.2 g/dL (3.4-5.0); CALCIUM 8.3 mg/dL (8.5-10.1); CREATININE 3.4 mg/dL (0.6-1.3); MAGNESIUM 2.3 mg/dL (1.8-2.4); POTASSIUM 5.3 mmol/L (3.5-5.1); TOTAL BILIRUBIN 0.5 mg/dL (<0.1-1.0); TOTAL PROTEIN 5.3 g/dL (6.4-8.2); TROPONIN-I LEVEL 0.22 ng/mL (<0.06)
[2018-10-23 07:40] VITALS: BP 145/67
--- NOTE | 2018-10-23 09:08 | NUR ---
RECEIVED REPORT FROM RN, ASSUMED CARE AT 0700. PATIENT AXOX4, ASSESSMENT CHARTED. PATIENT UP IN CHAIR FOR BREAKFAST THIS AM, AT BEDSIDE. REPORTS NO PAIN, NAUSEA. DOES HAVE SOME SHORTNESS OF BREATH WITH EXERITION BUT RECOVERED QUICKLY AFTER REST. OXYGEN SAT APPROPRIATE. ANTIBIOTICS FOR PNEUMONIA AND WILL CONTINUE TO MONITOR. TENANT COORDINATOR IN PLACE. CALL LIGHT IN REACH.
--- NOTE | 2018-10-23 11:43 | EKG ---
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: : 1935 Requested By: Shaka Zambrano Order Number: [id number] Eleuterio MD: Shaka Zambrano Measurements Intervals [place] Rate: 74 P: 0 MN: 131 QRS: 33 QRSD: 136 T: 206 QT: 590 QTc: 655 Interpretive Statements Ventricular-paced complexes atrial fibrillation No further analysis attempted due to paced rhythm Compared to ECG 10/22/2018 09:38:34 no change Electronically Signed On 10-23-2018 11:43:12 CDT by Shaka Zambrano [email or web address] <ELECTRONICALLY SIGNED> By: Shaka Zambrano MD, [facility] 10/23/18 1143 0942 0942 Shaka Zambrano MD, [facility] /EPI
[2018-10-23 11:56] VITALS: BP 125/61
[2018-10-23 16:02] VITALS: BP 128/58
--- NOTE | 2018-10-23 16:07 | NUR ---
SW met with pt and pt to complete initial assessment, introduce self, and SW role. Pt continues to live at home with . Pt has RW, cane and hx of [facility], none of which she uses currently. Pt and pt did not express any dc needs at this time. SW to continue to follow to assist with safe dc planning if needs arise.
--- NOTE | 2018-10-23 17:07 | NUR ---
PATIENT SOMEWHAT PROGRESSING WELL TOWARDS GOALS. REDUCED SLIDING SCALE THIS AFTERNOON DUE TO SUGAR DROPPING TO 57. PATIENT NOT HAVING MUCH OF APPETITE, SUGARS AND INSULIN CHANGED TO AFTER MEALS TO HELP HER SUGAR FROM DROPPING WHEN SHE IS NOT EATING MUCH. AT BEDSIDE THROUGHOUT SHIFT, VERY HELPFUL, ALL QUESTIONS ANSWERED. NO PAIN, NAUSEA OR SHORTNESS OF AIR AT THIS TIME. BED IN LOWEST POSITION, CALL LIGHT IN REACH, CHILD PROTECTION SPECIALIST IN PLACE.
[2018-10-23 20:30] VITALS: BP 123/61
[2018-10-24] VITALS (7 sets, daily range): BP systolic 118–175; BP diastolic 58–75
[2018-10-24 05:22] LABS: HEMATOCRIT 26.6 % (37.0-47.0); MCH 32.4 pg (26.0-34.0); MCHC 33.9 g/dL (28.0-37.0); MCV 95.8 fL (80.0-100.0); MPV 8.5 fl. (7.2-11.1); RBC 2.78 mil/uL (4.20-5.00); RDW-CV 13.3 % (10.5-14.5)
[2018-10-24 05:50] LABS: ALBUMIN 2.2 g/dL (3.4-5.0); CALCIUM 7.9 mg/dL (8.5-10.1); CREATININE 3.3 mg/dL (0.6-1.3); POTASSIUM 4.3 mmol/L (3.5-5.1); TOTAL BILIRUBIN 0.4 mg/dL (<0.1-1.0); TOTAL PROTEIN 5.2 g/dL (6.4-8.2)
--- NOTE | 2018-10-24 15:50 | NUR ---
CONTINUE TO FOLLOW, MET WITH PT AND SPOUSE TO DISCUSS DC PLANNING HOME WITH HH VS SNF. PT KEPT REPEATING SHE FELT OVERWHELMED TODAY. SPOUSE SUPPORTIVE. DISCUSSED AND EXPLAINED SNF AND HH DIFFERENCES. THEY LIVE IN [place] BUT ARE CONSIDERING MOVING TO [facility] IN [place], MAY BE INTERESTED IN [facility]. THEY WANT TO DISCUSS AND HAVE CM FOLLOW UP TOMORROW
--- NOTE | 2018-10-24 16:36 | CON ---
[address] [address] CONSULTATION Name: TASHAROXANNE J Room: [address] IN .R.#: [id number] Admission: 10/22/18 Attend Phys: Zahraa Zaragoza MD Discharge: Date of : 33 Report #: [id number] THIS REPORT FOR: //name// CC: Shaka Gillette DATE OF SERVICE: 10/22/2018 HISTORY OF PRESENT ILLNESS: The patient is an 82-year-old white female, who was asked to see in the hospital today with complaint of shortness of breath. The patient has an extensive past medical history. She is normally cared for by my partner, Dr. Gillette. She has a history of atrial fibrillation in the past and apparently required cardioversion in the past. She was placed on flecainide and Xarelto. She actually saw Dr. Gillette in March of this year. Recently, she developed symptomatic bradycardia and Dr. Gillette implanted a pacemaker a week ago. This was done as an outpatient. The following day, she actually went to the Emergency Room in [place] complaining of shortness of breath. She was evaluated and sent home. She then returned here to [facility] last week with low blood pressure and fatigue. She was hospitalized, just discharged 3 days ago. She returned to the hospital today. She apparently has no appetite. She is weak, short of breath. She has had some swelling. Cardiology consultation was requested. She denied any chest pain, history of coronary artery disease, palpitations, or syncope. PAST MEDICAL HISTORY: Significant for cholecystectomy, hysterectomy. She has a history of hypertension, hyperlipidemia, chronic kidney disease. MEDICATIONS: Include Xanax, Lipitor, BuSpar, clonidine, flecainide, Lasix, insulin, lisinopril, metoprolol, nifedipine, Xarelto. ALLERGIES: SHE HAS AN INTOLERANCE TO AMBIEN AND AMOXICILLIN. FAMILY HISTORY: Her father had heart disease. SOCIAL HISTORY: She is . She and her live in [place], [place]. She quit smoking years ago. No alcohol abuse. REVIEW OF SYSTEMS: She has had no history of stroke, asthma, liver disease. She has chronic kidney disease. No cancer. No psychiatric illness. No chronic skin condition. PHYSICAL EXAMINATION: GENERAL: Elderly, frail-appearing female, lying in bed. [place] [address] CONSULTATION Name: ROXANNE CORDOVA Room: [address]#: [id number] Admission: 10/22/18 Attend Phys: Zahraa Zaragoza MD Discharge: Date of : 33 Report #: [id number] VITAL SIGNS: She had a blood pressure of 180/90, pulse is 80. She is afebrile. HEENT: She was anicteric. Conjunctivae pink. Mucous membranes moist. NECK: Veins do not appear distended. No carotid bruits. CHEST: Clear to auscultation. CARDIOVASCULAR: Regular rate and rhythm. ABDOMEN: Soft. EXTREMITIES: Had no edema. Dorsalis pedis pulse 2+ bilaterally. SKIN: Warm, dry. NEUROLOGIC: Nonfocal. LYMPH: No adenopathy. MUSCULOSKELETAL: No joint effusion. DIAGNOSTIC DATA: Her ECG on admission today appears to show a ventricular-paced rhythm. Her underlying rhythm appears to represent atrial fibrillation. Her workup, she had cardiac catheterization by Dr. Madera in 2014 that showed no significant coronary artery disease. Echocardiogram a year ago showed ejection fraction of 60% with moderate mitral regurgitation. Previous carotid Doppler study showed no significant stenosis. Previous sleep study showed no sleep apnea. LABORATORY DATA: Sodium 134, BUN 70, creatinine 3, it was actually 1.4 in 2017. Glucose 335. Her BNP is 30,000. Troponin 0.16. Her TSH 2.7. White blood cell count 12.5, hemoglobin 10.5. She had portable chest x-ray this morning that showed pacemaker in place, some infiltrates, small effusions. V/Q scan of the lungs done today that showed low probability for pulmonary embolus. CT scan of the head was done in 2017 showing atrophy. IMPRESSION AND RECOMMENDATIONS: 1. Atrial fibrillation. The patient appears to be back in atrial fibrillation. I would not recommend efforts at cardioversion. I would consider stopping the flecainide and continue anticoagulation. 2. Recent pacemaker. The patient is ventricular paced. 3. Chronic kidney disease. The patient followed by Nephrology. 4. Diabetes. 5. Hypertension. The patient has been on clonidine, RAJ inhibitor, beta kenny, and calcium kenny. 6. Anemia. No history of bleeding. 7. Hyperlipidemia. The patient is on a statin drug. <ELECTRONICALLY SIGNED> By: Shaka Zambrano MD, FACC 10/24/18 1636 1439 [id number] Zambrano MD, [facility] /nt
--- NOTE | 2018-10-25 02:47 | NUR ---
PT ALERT ORIENTED ANXIOUS AT TIMES. WHEN ASKED QUESTIONS RE PAIN ETC PT STATES SHE DOES NOT KNOW AND LOOKS TO FOR ANSWERS. TELEMETRY SHOWS SR. O2 AT 5 LITESRS TITRATED DOWN FROM 6. PT STATED SHE THOUGHT SHE WAS GOING HOME THIS AM. PT TEACHING RE O2 TITRATION WITH PNEUMONIA.
[2018-10-25 04:00] VITALS: BP 154/74
[2018-10-25 04:24] LABS: HEMATOCRIT 31.9 % (37.0-47.0); HEMOGLOBIN 10.3 gm/dL (12.0-15.0); MCH 31.1 pg (26.0-34.0); MCHC 32.4 g/dL (28.0-37.0); MCV 95.9 fL (80.0-100.0); MPV 8.4 fl. (7.2-11.1); RBC 3.33 mil/uL (4.20-5.00); RDW-CV 13.6 % (10.5-14.5); WBC 11.8 thou/uL (4.0-11.0)
[2018-10-25 04:32] LABS: CALCIUM 8.4 mg/dL (8.5-10.1); CREATININE 3.2 mg/dL (0.6-1.3); MAGNESIUM 2.1 mg/dL (1.8-2.4); POTASSIUM 4.5 mmol/L (3.5-5.1)
--- NOTE | 2018-10-25 05:55 | NUR ---
PT HAVING EPISOIDS OF CONFUSION. TAKING O2 OFF AND COMING OUT IN HALLS. REORIENTING TO SITUATION. AT BEDSIDE WITH PT.
--- NOTE | 2018-10-25 07:15 | NUR ---
CHANGE OF SHIFT, BEDSIDE REPORT GIVEN PATIENT SEEN IN ROOM SITTING UP IN CHAIR ASSUMED PATIENT CARE
[2018-10-25 08:00] VITALS: BP 141/62
[2018-10-25 11:00] VITALS: BP 128/67
[2018-10-25 11:35] LABS: URINE BILIRUBIN NEGATIVE (Negative); URINE BLOOD TRACE (Negative); URINE CLARITY CLEAR; URINE COLOR YELLOW; URINE GLUCOSE-RANDOM TRACE (Negative); URINE KETONES NEGATIVE (Negative); URINE LEUKOCYTES-REFLEX NEGATIVE (Negative); URINE NITRITE-REFLEX NEGATIVE (Negative); URINE PROTEIN 2+ (Negative); URINE SPECIFIC GRAVITY 1.025 (1.005-1.030); URINE UROBILINOGEN 0.2 E.U./dl (0.2-1.0)
[2018-10-25 11:41] LABS: BACTERIA-REFLEX 1-9 Few /HPF (None Seen); CRYSTALS None Seen /LPF (None Seen); HYALINE CASTS 0-3 Few /LPF (None Seen); MUCUS 0-3 Light strn/LPF (None Seen); SQUAMOUS 0-3 Few /LPF (0-3); URINE RBC 0-2 Rare /HPF (0-2); URINE WBC-REFLEX 0-5 Rare /HPF (0-5)
[2018-10-25] MEDS ORDERED: PROCARDIA XL30 MG PO (11:50)
[2018-10-25] MEDS ORDERED: CATAPRES0.1 MG PO (11:50)
[2018-10-25] MEDS ORDERED: LEVAQUIN 500 M500 M3 PO (11:50)
[2018-10-25] MEDS ORDERED: LASIX 40 MG TAB40 M1 PO (11:50)
--- NOTE | 2018-10-25 14:05 | NUR ---
Pt to dc home with and HH services to follow. DAVIDE met with pt and pt to discuss safe dc planning and HH options. Pt preference for [facility]; SW faxed referral and orders to [facility]. Pt here to provide pt ride home.
[2018-10-25] MEDS ORDERED: LASIX 40 MG TAB40 M2 PO (14:18)
--- NOTE | 2018-10-25 14:45 | NUR ---
DISCHARGE HOME WITH H/H IV AND HEART MONITOR REMOVED PERSONAL BELONGINGS RETURNED DC INSTRUCTIONS GIVEN, ACKNOWLEDGED, SIGNED COPIES GIVEN ASSISTED OUT VIA WC GOOD CONDITION TO WAITING CAR
== END 2018-10-25 14:48 | disposition home health service (06) | DRG 177 ==
LOC: M.ERS 09:23 → M.TBA-ER 10:28 → M.2W 10:28
PROVIDERS: Emergency Medicine Emergency Medical Services; Internal Medicine Nephrology; ADMIT Internal Medicine
DX: J15.6 Pneumonia due to other Gram-negative bacteria (principal); I50.31 Acute diastolic (congestive) heart failure; N18.4 Chronic kidney disease, stage 4 (severe); I42.9 Cardiomyopathy, unspecified; N17.9 Acute kidney failure, unspecified; I16.1 Hypertensive emergency; I13.0 Hypertensive heart and chronic kidney disease with heart failure and stage 1 through stage 4 chronic kidney disease, or unspecified chronic kidney disease; E78.5 Hyperlipidemia, unspecified; M81.0 Age-related osteoporosis without current pathological fracture; I27.20 Pulmonary hypertension, unspecified; D64.9 Anemia, unspecified; E11.22 Type 2 diabetes mellitus with diabetic chronic kidney disease; I48.2 Chronic atrial fibrillation; I49.5 Sick sinus syndrome; Z90.49 Acquired absence of other specified parts of digestive tract; Z90.710 Acquired absence of both cervix and uterus; Z95.0 Presence of cardiac pacemaker; Z88.1 Allergy status to other antibiotic agents; Z88.8 Allergy status to other drugs, medicaments and biological substances; Z82.49 Family history of ischemic heart disease and other diseases of the circulatory system; Z79.899 Other long term (current) drug therapy

== ENCOUNTER → 2018-11-01 | Outpatient (CLI) | payer MEDICARE, OTHER ==
[~2018-11-01] MED LIST changes: +CATAPRES0.1 MG PO; +LASIX 40 MG TAB40 M1 PO; +LASIX 40 MG TAB40 M2 PO; +LEVAQUIN 500 M500 M3 PO; +PROCARDIA XL30 MG PO
== END ==
LOC: M.RAD 13:39
DX: J18.1 Lobar pneumonia, unspecified organism (principal); J90 Pleural effusion, not elsewhere classified; J98.11 Atelectasis; Z88.0 Allergy status to penicillin; Z88.8 Allergy status to other drugs, medicaments and biological substances

== ENCOUNTER → 2019-06-10 | Outpatient (CLI) | payer MEDICARE, OTHER ==
--- NOTE | ~2019-06-10 | CARD ---
[address] [address] CARDIAC CATH REPORT Name: ROXANNE CORDOVA Room: [facility]#: [id number] Admission: 06/10/19 Attend Phys: José Miguel Gillette MD Discharge: Date of : 33 Report #: [id number] THIS REPORT FOR: //name// cc: Shaka Calero MD, David L. MD ~ CC: Raza Mark MD DATE OF SERVICE: 06/10/2019 INDICATION: Persistent atrial fibrillation. PROCEDURE: DC cardioversion. DESCRIPTION OF PROCEDURE: After informed consent was obtained, the patient was brought to the cardiac holding area. The patient was given 3 mg of intravenous Versed and 75 mcg of intravenous fentanyl for moderate sedation. Once the patient was adequately sedated, she was cardioverted from atrial fibrillation to an AV paced rhythm with a single biphasic shock of 300 joules. The patient tolerated the procedure well and without complication. IMPRESSION: 1. Persistent atrial fibrillation. 2. Successful direct current cardioversion to an AV paced rhythm. By: 1445 [id number] Jabier Gillette MD, FACC /nt
[2019-06-10 14:48] VITALS: BP 139/56
[2019-06-10 14:54] VITALS: BP 128/56
[2019-06-10 14:57] VITALS: BP 123/57
== END | disposition home or self-care (01) ==
LOC: M.CL 12:45
DX: I48.0 Paroxysmal atrial fibrillation (principal); I12.9 Hypertensive chronic kidney disease with stage 1 through stage 4 chronic kidney disease, or unspecified chronic kidney disease; N18.9 Chronic kidney disease, unspecified; D64.9 Anemia, unspecified; Z79.899 Other long term (current) drug therapy; Z79.01 Long term (current) use of anticoagulants

== ENCOUNTER 2019-08-27 14:09 | Inpatient (IN) | payer MEDICARE, OTHER ==
[~2019-08-27] VITALS: Ht 162.6 cm; Wt 71.2 kg
--- NOTE | ~2019-08-27 | CON ---
[address] [address] CONSULTATION Name: ROXANNE CORDOVA Room: [address] IN .R.#: [id number] Admission: 08/27/19 Attend Phys: Zahraa Zaragoza MD Discharge: Date of : 33 Report #: [id number] THIS REPORT FOR: //name// cc: Shaka Calero MD, David L. MD ~ THIS REPORT FOR: //name// CC: Shaka Zaragoza NEPHROLOGY CONSULTATION CONSULTING PHYSICIAN: Dr. Zaragoza. REASON FOR CONSULTATION: Chronic kidney disease. HISTORY OF PRESENT ILLNESS: An 83-year-old female who is admitted with hypoxic respiratory failure and concerns for heart failure and pneumonia. She was started on antibiotics and was given diuretics. She normally follows with Dr. Brady, was last seen in our office by our nurse practitioner in March and at that time had a creatinine of 2.3 with an outpatient creatinine more recently on 08/16/2019 of 2.7. She currently appears to be comfortable, does not have any significant complaints. She is being seen by Cardiology. REVIEW OF SYSTEMS: Constitutional, psych, heme, eyes, ENT, respiratory, cardiac, GI, , endocrine, all negative except as documented above. PAST MEDICAL HISTORY: Chronic kidney disease, diabetes type 2, hypertension, proteinuria, history of mitral valve regurgitation, anemia with iron deficiency, AFib, sick sinus syndrome with permanent pacemaker. FAMILY HISTORY: Positive for coronary artery disease. SOCIAL HISTORY: No tobacco. CURRENT MEDICATIONS: Reviewed. PHYSICAL EXAMINATION: VITAL SIGNS: Blood pressure earlier this morning was 176/63, pulse 78, respirations 20, temperature 37.4. GENERAL: No acute distress. EYES: Open. EARS: Externally normal. NECK: Supple. CARDIOVASCULAR: Regular rate. LUNGS: Diminished breath sounds. ABDOMEN: [place] [address] CONSULTATION Name: ROXANNE CORDOVA Room: [address]#: [id number] Admission: 08/27/19 Attend Phys: Zahraa Zaragoza MD Discharge: Date of : 33 Report #: [id number] MUSCULOSKELETAL: Nontender. PSYCHIATRIC: Awake, alert. LABORATORY DATA: White cell count 15.7, hemoglobin 8.2, platelets 393. Sodium 136, potassium 3.8, chloride 102, bicarbonate 25, BUN 46, creatinine 2.6, glucose 185, calcium 8.3. ASSESSMENT: 1. Chronic kidney disease stage 4, followed by Dr. Brady as an outpatient. 2. On 08/16/2019 outpatient creatinine was 2.7, and in 03/2019, creatinine was 2.3. 3. Hypertension. 4. Diabetes type 2. 5. Proteinuria with an outpatient urine protein to creatinine ratio of 3250. 6. Atrial fibrillation. 7. Sick sinus syndrome with permanent pacemaker. 8. Pneumonia. 9. Reduced ejection fraction with EF of 40-45%, followed by Dr. Gillette as an outpatient. PLAN: 1. On antibiotics. 2. Diuretics being managed by Dr. Gillette. She currently is on IV Lasix. Blood pressures have been somewhat variable. Blood pressure medications are ordered, typically managed by Dr. Gillette. We will defer to him unless I am requested to manage, hopefully with diuresis blood pressure control will improve. We will repeat a urine protein and urine creatinine and follow along with you. She is currently not on an RAJ inhibitor or ARB. 3. Check labs again in the a.m. Thank you for requesting my opinion in the care and management of this patient. By: 1218 [id number] Montoya MD /delio
[2019-08-27 14:15] VITALS: BP 184/66
[2019-08-27] MEDS ORDERED: TEMOVATE15 GM TOP (14:27)
[2019-08-27 14:47] LABS: ABSOLUTE BASOPHILS 0.1 thou/uL (0.0-0.2); ABSOLUTE EOSINOPHILS 0.3 thou/uL (0.0-0.7); ABSOLUTE LYMPHOCYTES 0.6 thou/uL (0.8-5.3); ABSOLUTE MONOCYTES 0.6 thou/uL (0.0-1.2); ABSOLUTE NEUTROPHILS 7.6 thou/uL (1.6-8.1); BASOPHILS 0.9 %; EOSINOPHILS 3.1 %; HEMATOCRIT 25.1 % (37.0-47.0); HEMOGLOBIN 8.7 gm/dL (12.0-15.0); LYMPHOCYTES 6.6 %; MCH 30.8 pg (26.0-34.0); MCHC 34.7 g/dL (28.0-37.0); MONOCYTES 6.4 %; MPV 7.2 fl. (7.2-11.1); NUCLEATED RBCS 0 /100WBC; PLATELET COUNT* 397 thou/uL (150-400); RBC 2.82 mil/uL (4.20-5.00); RDW-CV 15.9 % (10.5-14.5); WBC 9.1 thou/uL (4.0-11.0)
[2019-08-27 14:51] LABS: BE -3.4 mmol/L (-2 to +3); PCO2 26.4 mmHg (35.0-45.0); pH 7.479 (7.340-7.450)
[2019-08-27 14:53] LABS: PO2 43.6 mmHg (75.0-100.0)
[2019-08-27 14:57] LABS: CALCIUM 8.7 mg/dL (8.5-10.1); CREATININE 2.9 mg/dL (0.6-1.3)
[2019-08-27 14:59] LABS: APTT 33.1 Seconds (25.0-31.3); INR 1.2; PROTIME 12.7 Seconds (9.20-11.50)
[2019-08-27 15:11] LABS: ALBUMIN 2.9 g/dL (3.4-5.0); MAGNESIUM 2.4 mg/dL (1.8-2.4); TOTAL BILIRUBIN 0.8 mg/dL (<0.1-1.0); TOTAL PROTEIN 7.1 g/dL (6.4-8.2)
[2019-08-27 17:47] VITALS: BP 178/70
[2019-08-27 18:39] VITALS: BP 95/75
[2019-08-27 20:20] VITALS: BP 171/75
[2019-08-28] VITALS: BP 162/64
[2019-08-28 04:00] VITALS: BP 188/66
[2019-08-28 06:51] LABS: HEMATOCRIT 22.5 % (37.0-47.0); HEMOGLOBIN 7.6 gm/dL (12.0-15.0); MCH 30.4 pg (26.0-34.0); MCHC 33.6 g/dL (28.0-37.0); MCV 90.4 fL (80.0-100.0); MPV 7.3 fl. (7.2-11.1); RBC 2.49 mil/uL (4.20-5.00); RDW-CV 15.8 % (10.5-14.5); WBC 9.3 thou/uL (4.0-11.0)
[2019-08-28 06:56] LABS: CALCIUM 8.1 mg/dL (8.5-10.1); CREATININE 2.9 mg/dL (0.6-1.3); MAGNESIUM 2.2 mg/dL (1.8-2.4); POTASSIUM 4.5 mmol/L (3.5-5.1)
[2019-08-28 08:00] VITALS: BP 200/83
[2019-08-28] MEDS ORDERED: CARVEDILOL25 MG PO (11:29)
[2019-08-28] MEDS ORDERED: AMIODARONE HCL400 MG PO (11:31)
[2019-08-28] MEDS ORDERED: BUMEX2 MG PO (11:32)
[2019-08-28 12:36] VITALS: BP 122/58
[2019-08-28 16:53] VITALS: BP 156/59
[2019-08-28 21:35] VITALS: BP 172/78
[2019-08-28] MEDS ORDERED: PROCARDIA XL30 MG PO (22:09)
[2019-08-28] MEDS ORDERED: MIRALAX17 GM PO (22:19)
[2019-08-29] VITALS: BP 181/75
[2019-08-29 02:06] LABS: GLYCOHEMOGLOBIN (HGB A1C) 6.8 % (4.8-5.6)
[2019-08-29 04:00] VITALS: BP 176/63
[2019-08-29 08:00] VITALS: BP 192/81
--- NOTE | 2019-08-29 08:36 | EKG ---
[place] [id number] ELECTROCARDIOGRAM REPORT Name: TASHAROXANNE Ceballos Room: [address] ADM IN .R.#: [id number] Admission: 08/27/19 Attend Phys: Zahraa Zaragoza, Discharge: Date of : 31 Date of Service: 08/27/19 1418 Report #: [id number] THIS REPORT FOR: //name// [facility] ED Test Date: 2019-08-27 Test Time: 14:18:47 Pat Name: ROXANNE CORDOVA Department: Room: [facility] Gender: F Lvn Lpn: CCD : 1935 Requested By: Zenon Sargent Order Number: [id number] MD: José Miguel Gillette Measurements Intervals [place] Rate: 81 P: 267 MD: 96 QRS: 69 QRSD: 113 T: 5 QT: 442 QTc: 513 Interpretive Statements Sinus rhythm Borderline repolarization abnormality Prolonged QT interval Compared to ECG 10/23/2018 09:42:25 Prolonged QT interval now present Ventricular-paced complex(es) or rhythm no longer present Atrial fibrillation no longer present Electronically Signed On 08-29-2019 8:36:12 CDT by José Miguel Gillette [email or web address] <ELECTRONICALLY SIGNED> By: José Miguel Gillette MD, [facility] 08/29/19 0836 1418 1418 José Miguel Gillette MD, [facility] /EPI
[2019-08-29 09:10] LABS: HEMATOCRIT 23.9 % (37.0-47.0); HEMOGLOBIN 8.2 gm/dL (12.0-15.0); MCH 30.4 pg (26.0-34.0); MCHC 34.1 g/dL (28.0-37.0); MCV 89.1 fL (80.0-100.0); MPV 6.7 fl. (7.2-11.1); NUCLEATED RBCS 0 /100WBC; RBC 2.69 mil/uL (4.20-5.00); RDW-CV 16.3 % (10.5-14.5); WBC 15.7 thou/uL (4.0-11.0)
[2019-08-29 09:14] LABS: PLATELET COUNT* 393 thou/uL (150-400)
[2019-08-29 09:16] LABS: CALCIUM 8.3 mg/dL (8.5-10.1); CREATININE 2.6 mg/dL (0.6-1.3); POTASSIUM 3.8 mmol/L (3.5-5.1)
[2019-08-29 10:41] LABS: ABSOLUTE BASOPHILS 0.2 thou/uL (0.0-0.2); ABSOLUTE EOSINOPHILS 0.5 thou/uL (0.0-0.7); ABSOLUTE LYMPHOCYTES 0.6 thou/uL (0.8-5.3); ABSOLUTE MONOCYTES 0.6 thou/uL (0.0-1.2); ABSOLUTE NEUTROPHILS 13.8 thou/uL (1.6-8.1)
[2019-08-29 10:42] LABS: HYPOCHROMASIA 2+; PLATELET ESTIMATE ADEQUATE
[2019-08-29 12:00] VITALS: BP 162/70
[2019-08-29 16:00] VITALS: BP 158/65
[2019-08-29 20:30] VITALS: BP 164/63
[2019-08-30] VITALS (7 sets, daily range): BP systolic 117–156; BP diastolic 50–64
[2019-08-30 04:31] LABS: ABSOLUTE LYMPHOCYTES 0.4 thou/uL (0.8-5.3); ABSOLUTE MONOCYTES 0.1 thou/uL (0.0-1.2); ABSOLUTE NEUTROPHILS 9.4 thou/uL (1.6-8.1); BASOPHILS 0.1 %; HEMATOCRIT 24.2 % (37.0-47.0); HEMOGLOBIN 8.3 gm/dL (12.0-15.0); MCH 30.6 pg (26.0-34.0); MCHC 34.2 g/dL (28.0-37.0); MCV 89.2 fL (80.0-100.0); MONOCYTES 1.5 %; MPV 7.1 fl. (7.2-11.1); NUCLEATED RBCS 0 /100WBC; PLATELET COUNT* 333 thou/uL (150-400); POLYS 94.4 %; RBC 2.71 mil/uL (4.20-5.00); RDW-CV 16.1 % (10.5-14.5)
[2019-08-30 05:18] LABS: ALBUMIN 2.4 g/dL (3.4-5.0); CALCIUM 8.2 mg/dL (8.5-10.1); CREATININE 2.6 mg/dL (0.6-1.3); MAGNESIUM 2.1 mg/dL (1.8-2.4); PHOSPHORUS* 4.6 mg/dL (2.5-4.9); POTASSIUM 4.4 mmol/L (3.5-5.1)
--- NOTE | 2019-08-30 08:00 | CON ---
[address] [address] CONSULTATION Name: ROXANNE CORDOVA Room: [address] IN [facility]#: [id number] Admission: 08/27/19 Attend Phys: Zahraa Zaragoza MD Discharge: Date of : 33 Report #: [id number] THIS REPORT FOR: //name// cc: Shaka Calero MD, David L. MD ~ THIS REPORT FOR: //name// CC: Shaka Zaargoza DATE OF SERVICE: 08/29/2019 REQUESTING PHYSICIAN: Zahraa Zaragoza MD INDICATION FOR CONSULTATION: Acute hypoxemic respiratory failure/possible left lung mass. HISTORY OF PRESENT ILLNESS: An 83-year-old female. She does not have any known history of smoking and has not been previously diagnosed with COPD either. The patient does have a history of cardiac disease in the past and has had atrial fibrillation. She has been on anticoagulation for atrial fibrillation. She also has a history of chronic renal failure. The patient's baseline creatinine is around 2.3. More recently, the patient has had increase in shortness of breath. The patient in fact was admitted for these complaints to [facility] towards the end of July. The patient at that time did have a CT chest performed, which does show ground-glass opacities bilaterally. The patient also did have an infiltrate/possible mass in the left lung. The patient was tested for COVID-19 at that time. The patient's COVID-19 test was negative. The patient has now presented here again 2 days ago. Presentation again is with increase in shortness of breath. The patient has had a cough. There is not much sputum. There is no chest pain. She did not describe any upper respiratory complaints. The patient, however, has been febrile with temperatures up to 38.2 degrees Celsius recorded yesterday. The patient is not reported to be previously on supplemental oxygen. The patient is currently requiring 8 liters of oxygen to maintain O2 saturation in the low 90s. We have just performed another CT chest, which again does show ground-glass opacities as well as an infiltrate in the left lung and pleural effusion. I do have the previous CT report available; however, I do not have the films available for comparison. The patient is in no distress at this time. She does not have swelling of lower extremities. There is no calf pain. She does not have abdominal complaints. There is no nausea, vomiting, diarrhea, or constipation. She has occasional joint pains, [place] [address] CONSULTATION Name: ROXANNE CORDOVA Tucker Room: [address] IN [facility].#: [id number] Admission: 08/27/19 Attend Phys: Zahraa Zaragoza MD Discharge: Date of : 33 Report #: [id number] REVIEW OF SYSTEMS: For 12 points is negative except as mentioned above. PAST MEDICAL HISTORY: Paroxysmal atrial fibrillation, sick sinus syndrome, hypertension, hyperlipidemia. Previous echocardiograms have shown marked elevation in pulmonary artery pressures. The last available echocardiogram is from last month at [facility], which shows left ventricular ejection fraction normal at 60-65%. It has been previously decreased to 40-45%. The right heart pressure is 50 on this echo. There was reported to be very mild aortic stenosis. The patient's baseline creatinine is 2.3 and she does have chronic renal failure. Also, diabetes, osteoporosis, right arm surgery, gallbladder surgery, hysterectomy, pacemaker placement, left knee surgery. SOCIAL HISTORY: The patient is reported to be a lifetime nonsmoker. There is no known history of smoking, ethanol abuse or drug abuse. CURRENT MEDICATIONS: List in [employer] reviewed. HOME MEDICATIONS: The list is also in [employer] and is reviewed. ALLERGIES: AMOXICILLIN, AMBIEN, HYDRALAZINE, AND PROPOXYPHENE ARE MENTIONED ALLERGIES. It is noted that the patient currently is tolerating cephalosporins without any problems. FAMILY HISTORY: There is no pertinent family history. PHYSICAL EXAMINATION: GENERAL: She is alert, awake and oriented, does not appear to be in any distress at this time. VITAL SIGNS: She, however, is on 8 liters nasal cannula. She is oxygenating only 92-93%. Blood pressure is elevated to 162/70. Pulse is 96, respiratory rate 18. She is afebrile now with a temperature of 36.3; however, she did have a fever up to 38.2 overnight. Body mass index is elevated to 27. HEENT: Head is normocephalic and atraumatic. NECK: Does not show raised JVP, asymmetry, mass, or lymph nodes. CHEST: Symmetrical expansion on inspection and palpation. On auscultation, breath sounds are decreased at the left lung base. HEART: Regular. There is no murmur. ABDOMEN: Soft and nontender. EXTREMITIES: Lower extremities show no edema, no calf tenderness. SKIN: Dry and intact. NEUROLOGICAL: Moves all extremities bilaterally equally and spontaneously with no focal deficit identified. LABORATORY DATA: The patient did have a CT chest performed today. I reviewed and compared with previous imaging we have available here. I also reviewed the report from [facility]. In summary, there are bilateral ground-glass [facility] [address] [place] [id number] CONSULTATION Name: ROXANNE CORDOVA Room: [address] IN [facility].#: [id number] Admission: 08/27/19 Attend Phys: Zahraa Zaragoza MD Discharge: Date of : 33 Report #: [id number] opacities. There is an infiltrate at the left lung base. I do not see any definite mass. There is a pleural effusion on the left side. None of these findings are detected on the CT of the abdomen and pelvis performed in 2017; however, that does not evaluate the upper lung gunderson where the ground-glass opacities are most prominent. The patient's initial arterial blood gas is reviewed and is in [facility] reviewed. It shows respiratory alkalosis and acute hypoxemic respiratory failure. The patient's CBC repeated 3 times and chemistries are in [facility] reviewed. The patient's D-dimer was not elevated. She is regardless on Xarelto. Blood glucoses have been labile. ASSESSMENT/PLAN: 1. Acute hypoxemic respiratory failure. Discussion regarding the CT of the chest is as above. Ground-glass opacities are noted bilaterally. Fluid overload as well as viral and atypical pneumonia can lead to these findings. Note that the patient is on amiodarone, which will be a less likely but possible etiology of these findings as well. The patient does not appear to be fluid overloaded at the time of my examination; therefore, perhaps it appears more likely to me that these ground-glass opacities have an acute infectious etiology. At this time, the patient is on 8 liters oxygen via nasal cannula. We will therefore go ahead and add a corticosteroid and then follow response. We will continue to titrate oxygen. 2. Bilateral ground-glass opacities/left lower lobe pulmonary infiltrate. The patient is already on broad-spectrum antibiotics. She has been tested twice for COVID-19 and has been found to be negative. I would defer to the ID service as to whether any additional testing is needed. We will go ahead and check urine for legionella as well as pneumococcal antigen, also sent off markers for mycoplasma. She is currently broadly covered with antibiotics. The patient will need a followup CT, will follow and advise. 3. Left-sided pleural effusion. I feel that there is a [id number] size pleural effusion, large enough to tap. In order to reduce the risk of thoracentesis, I discontinued her Xarelto and will tentatively plan to tap this effusion on Monday if the patient's condition fails to improve. 4. Paroxysmal atrial fibrillation. Discussion as above. We will defer long-term anticoagulation to the Cardiology service. If the patient needs anticoagulation over this weekend, then I suggest using the short-acting agent. 5. Chronic renal failure. See discussion above. Dr. Leila Montoya is on the case. 6. Rule out lung mass. I do not see any definite mass on the new CT. Suspicion was raised on the previous CT performed in [place]. Regardless, I will plan on doing a followup CT in the next few weeks to follow up on her infiltrates and pleural effusion. 7. Rule out amiodarone toxicity. My suspicion is low. Clinical presentation is more consistent with an acute infectious process. I feel that for now it is reasonable to continue amiodarone. Should the findings on the patient's CT chest persist despite therapy, then I would consider this later. [address] [address] CONSULTATION Name: ROXANNE CORDOVA Room: [address] [facility] IN [facility].#: [id number] Admission: 08/27/19 Attend Phys: Zahraa Zaragoza MD Discharge: Date of : 33 Report #: [id number] Thanks for this consultation. <ELECTRONICALLY SIGNED> By: Rai Burnette MD 08/30/19 0800 1532 [id number] Burnette MD /nt
[2019-08-31] VITALS: BP 123/53
[2019-08-31 04:00] VITALS: BP 146/57
[2019-08-31 05:39] LABS: ABSOLUTE LYMPHOCYTES 0.6 thou/uL (0.8-5.3); ABSOLUTE MONOCYTES 0.7 thou/uL (0.0-1.2); ABSOLUTE NEUTROPHILS 10.6 thou/uL (1.6-8.1); HEMATOCRIT 22.2 % (37.0-47.0); HEMOGLOBIN 7.5 gm/dL (12.0-15.0); LYMPHOCYTES 4.9 %; MCH 29.8 pg (26.0-34.0); MCHC 33.6 g/dL (28.0-37.0); MCV 88.8 fL (80.0-100.0); MONOCYTES 5.6 %; MPV 7.2 fl. (7.2-11.1); NUCLEATED RBCS 0 /100WBC; PLATELET COUNT* 315 thou/uL (150-400); POLYS 89.5 %; RDW-CV 16.2 % (10.5-14.5); WBC 11.8 thou/uL (4.0-11.0)
[2019-08-31 05:59] LABS: ALBUMIN 2.4 g/dL (3.4-5.0); CALCIUM 8.4 mg/dL (8.5-10.1); CREATININE 3.1 mg/dL (0.6-1.3); MAGNESIUM 2.2 mg/dL (1.8-2.4); POTASSIUM 4.3 mmol/L (3.5-5.1); TOTAL BILIRUBIN 0.4 mg/dL (<0.1-1.0)
[2019-08-31 08:00] VITALS: BP 153/58
[2019-08-31 12:23] VITALS: BP 140/83
[2019-08-31 16:52] VITALS: BP 123/87
[2019-08-31 20:00] VITALS: BP 135/52
[2019-09-01] VITALS: BP 143/57
[2019-09-01 03:44] VITALS: BP 159/60
[2019-09-01 05:00] LABS: CALCIUM 8.5 mg/dL (8.5-10.1)
[2019-09-01 08:00] VITALS: BP 152/56
[2019-09-01] MEDS ORDERED: PREDNISONE 10 M10 MG PO (11:39)
[2019-09-01] MEDS ORDERED: PACERONE 200 M200 M1 PO (11:39)
[2019-09-01] MEDS ORDERED: DOXYCYCLINE 10100 MG PO (11:39)
[2019-09-01 12:30] VITALS: BP 144/54
--- NOTE | 2019-09-02 11:06 | CON ---
[address] [address] CONSULTATION Name: RLOPHELIAJOSUÉROXANNE Tucker Room: [address]#: [id number] Admission: 08/27/19 Attend Phys: Zahraa Zaragoza MD Discharge: 09/01/19 Date of : 33 Report #: [id number] THIS REPORT FOR: //name// cc: Shaka Calero MD, David L. MD ~ THIS REPORT FOR: //name// CC: Shaka Zaragoza ADDENDUM: This is an addendum to job #[id number]. In reviewing our records from our office, the patient underwent both upper and lower endoscopies back in August of 2005. At that time, she had a Schatzki's ring, which was successfully dilated and a hiatal hernia. Colonoscopy was unremarkable for diverticular disease and external hemorrhoids. No other abnormalities were noted. <ELECTRONICALLY SIGNED> By: Kvng Pittman DO 09/02/19 1106 1315 1458Kvng Pittman DO /nt
--- NOTE | 2019-09-02 11:06 | CON ---
[address] [address] CONSULTATION Name: ROXANNE CORDOVA Room: [address] IN .R.#: [id number] Admission: 08/27/19 Attend Phys: Zahraa Zaragoza MD Discharge: 09/01/19 Date of : 33 Report #: [id number] THIS REPORT FOR: //name// cc: Shaka Calero MD, David L. MD ~ THIS REPORT FOR: //name// CC: Shaka Zaragoza MD DATE OF SERVICE: 08/29/2019 REFERRING PHYSICIAN: Zahraa Zaragoza MD REASON FOR CONSULTATION: Possible iron deficiency anemia. IMPRESSION: 1. Anemia of uncertain etiology -- suspect anemia of chronic disease versus less likely iron deficiency anemia. 2. Respiratory failure with large left pleural effusion requiring 8 liters of oxygen per nasal cannula. 3. Chronic kidney disease, stage 4 with a GFR of only 15. 4. Congestive heart failure with history of atrial fibrillation and pacemaker placement. RECOMMENDATIONS: 1. At the present time, the patient is not a good candidate for any endoscopic studies due to her high oxygen requirements. In addition, she denies any major complaints referable to her upper or lower GI tract, other than constipation, which has been chronic. 2. We will hold off on any endoscopic studies at this point in time unless she has any overt findings to suggest that she is having any gastrointestinal bleeding. 3. In the interim, we can be scheduled for the patient for CT scan of the abdomen and pelvis with oral contrast only to evaluate her upper and lower GI tract for any bowel wall thickening or tumor. If anything suspicious noted within the colon, she would likely need a 2-day bowel preparation due to her issues with chronic constipation. I have discussed the plans with the patient as well as her and we will standby at this time. HISTORY OF PRESENT ILLNESS: This is an 83-year-old white female who was admitted to hospital with complaints of rather severe shortness of breath and difficulty breathing. She was found to have a fairly large left pleural effusion and is currently under workup for the same. [place] [address] CONSULTATION Name: ROXANNE CORDOVA Tucker Room: [address] IN [facility].#: [id number] Admission: 08/27/19 Attend Phys: Zahraa Zaragoza MD Discharge: 09/01/19 Date of : 33 Report #: [id number] because of problem with anemia. She denies any complaints of any dysphagia, odynophagia, postprandial pain or any black stools, tarry stools or any blood in her stools. She has a tendency towards chronic constipation, which has been longstanding. She does take MiraLax to help keep her bowels moving and this works fairly well for. She has undergone endoscopic studies of her lower GI tract in the past, but it has been a number of years ago. She is not taking nonsteroidals. She is currently in the hospital for problems related to volume overload and a left pleural effusion. ALLERGIES: ZOLPIDEM, AMOXICILLIN, HYDRALAZINE AND DARVON. CURRENT MEDICATIONS AT HOME: Include clonidine, Procardia, Temovate, Centrum Silver, BuSpar, Xarelto, Xanax, vitamin D, Lipitor, NovoLog insulin, Colace, Toujeo, fish oil and MiraLax. PAST MEDICAL AND SURGICAL HISTORY: Remarkable for underlying hypertension, atrial fibrillation. She had previous pacemaker placement as well. She does have problem with anxiety, hyperlipidemia, diabetes, osteoporosis, chronic kidney disease stage 4, history of anemia. She has had previous pins and plates placed in her right arm. She had appendiceal cancer back in 1981, cholecystectomy in 1994. She had a left knee repair in 2018. SOCIAL HISTORY: The patient does not smoke or drink. FAMILY HISTORY: Negative. PHYSICAL EXAMINATION: GENERAL: Pleasant 83-year-old female who is on 8 liters, but she is not conversationally dyspneic. CARDIOPULMONARY: Revealed irregular rate and rhythm, which appears to be controlled. LUNGS: She has diminished breath sounds at left base. ABDOMEN: Soft and not tender. No rebound or guarding noted. LABORATORY DATA: Revealed a white count of 15.7, hemoglobin 8.2, platelet count 393,000, MCV is 89.1, RDW 16.3. By comparison October of 2018, her white count was 12.5, hemoglobin 10.5, platelet count of 278, MCV 96.7, RDW 13.4. Her sodium 136, potassium 3.8, chloride 102, bicarbonate 25, BUN 46 and creatinine 2.6, GFR of only 17. Her total bilirubin from the revealed a bilirubin of 0.8, alkaline phosphatase 127, AST is 14, ALT 19, albumin is 2.9. She has globulin of 4.2. CT scan of the chest performed on the revealed a left pleural effusion. There is evidence for congestive heart failure and pulmonary edema. The visualized upper portions of the [place] [address] CONSULTATION Name: ROXANNE CORDOVA Room: [facility] IN .R.#: [id number] Admission: 08/27/19 Attend Phys: Zahraa Zaragoza MD Discharge: 09/01/19 Date of : 33 Report #: [id number] DISCUSSION: At the present time, the patient is too short of breath and is on too much oxygen to be considered for endoscopic evaluation. We can reassess this, but at the present time, I just proceed with a CT scan of the abdomen and pelvis with oral contrast only to evaluate for any obvious large lesions, which maybe contributing to her anemia. I have discussed the plans with the patient as well as her and they are agreeable to the same. <ELECTRONICALLY SIGNED> By: Kvng Pittman DO 09/02/19 1106 1305 1347Kvng Pittman DO /nt
[2019-09-02 22:06] LABS: MYCOPLASMA PNEUMONIA IgG <100 U/mL (0-99)
--- NOTE | 2019-09-03 07:53 | CON ---
[address] [address] CONSULTATION Name: ROXANNE CORDOVA Room: [address] IN .R.#: [id number] Admission: 08/27/19 Attend Phys: Zahraa Zaragoza MD Discharge: 09/01/19 Date of : 33 Report #: [id number] THIS REPORT FOR: //name// cc: Shaka Calero MD, David L. MD ~ THIS REPORT FOR: //name// CC: Shaka Zaragoza DATE OF SERVICE: 08/29/2019 INFECTIOUS DISEASE CONSULTATION ATTENDING PHYSICIAN: Dr. Zaragoza. REASON FOR EVALUATION: Chronic pneumonitis. HISTORY OF PRESENT ILLNESS: Chart reviewed, patient examined. This is an 83-year-old with extensive medical history including diabetes mellitus type 2, who had been ill for the last several weeks, was hospitalized, at one point diagnosed with pneumonitis, unclear etiology. Also had issue with recurrent atrial fibrillation, underwent cardioversion, recent hospitalization over the weekend for progressive dyspnea. Again, I believe they had her on some broad-spectrum antimicrobials. Seemingly since discharge really has not improved. She was found to be more dyspneic. It is not clear that she had any systemic illness in terms of fevers or chills. She notes her weight actually has gone up despite the fact that she has had a poor p.o. intake with anorexia. Does have cough that is nonproductive. Initial evaluation showed a fairly profound hypoxemia on room air with a pO2 of 43.6, pH 7.479, pCO2 of 26.4. Did do a rapid coronavirus testing, which was negative. Creatinine was found to be elevated at 2.9. Chest x-ray showed bilateral infiltrates with perhaps consolidation left lower lobe. CT of the chest is pending. Blood cultures are sterile thus far. Empirically started on therapy with ceftriaxone and doxycycline. Does have some degree of mild encephalopathy. At this point, she is on supplemental oxygen at 6-8 liters. ALLERGIES: AMOXICILLIN, PROPOXYPHENE, ZOLPIDEM, HYDRALAZINE. CURRENT MEDICATIONS: Include carvedilol, amiodarone, rivaroxaban, nifedipine, insulin, multivitamin, furosemide, doxycycline, famotidine, clonidine, atorvastatin, cholecalciferol, buspirone and ceftriaxone. PAST MEDICAL HISTORY: As noted above, diabetes mellitus type 2. 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 SOCIAL HISTORY: Nonsmoker, no ethanol, no illicit drug use. FAMILY HISTORY: Noncontributory. REVIEW OF SYSTEMS: Otherwise, unremarkable 10-point review of systems. PHYSICAL EXAMINATION: GENERAL: She appears somewhat chronically ill, undernourished. She is pale. She is in respiratory distress at this point, although she is supplemented by high flow nasal cannula oxygen. VITAL SIGNS: Temperature 97.3, T-max overnight 100.8, pulse 96, respirations 18, blood pressure 162/70. SKIN: Warm, dry. I do not appreciate any rashes. HEENT: Normocephalic. Extraocular muscles intact. NECK: Supple. LUNGS: Scattered crackles bilaterally; bottom half primarily. HEART: Borderline tachycardic. It is irregular, may have soft systolic murmur. ABDOMEN: Mildly distended, generally soft. There is not tenderness noted. There are no peritoneal signs. GENITOURINARY AND RECTAL: Deferred. LABORATORY DATA: Most recent CBC: White count of 15.7, hemoglobin and hematocrit 8.2 and 23.9, platelets of 393. Differential showed lymphocytopenia of 600. Blood cultures sterile thus far. Ferritin 121. Electrolytes: Sodium 136, potassium 3.8, chloride 102, bicarbonate 25, anion gap of 9, BUN and creatinine 46 and 2.6. Estimated glomerular filtration rate of 17, hemoglobin A1c 6.8. Troponin less than 0.06. TSH of 2.776, borderline elevated. Free T4 1.49. Lactic acid 1.2. Chest x-ray as described above. COVID testing was negative. Liver functions otherwise unremarkable. Albumin of 2.9, total protein 7.1. ASSESSMENT: Chronic pneumonitis, certainly may well be multifactorial. I cannot exclude an infectious component. CT of the chest may help. If there is an effusion would consider thoracentesis. She does have some renal insufficiency, has got a HYPERSENSITIVITY TO PENICILLIN. I think this current regimen is reasonable. If she would deteriorate, certainly could broaden it out, I think anything forthcoming in terms of sputum. We will initiate incentive spirometry, increase activity and wean oxygen as allowed. Certainly, cannot exclude an occult process either. I do worry there is some degree about [address] [address] CONSULTATION Name: ROXANNE CORDOVA Room: [address]#: [id number] Admission: 08/27/19 Attend Phys: Zahraa Zaragoza MD Discharge: 09/01/19 Date of : 33 Report #: [id number] adverse drug effects given her anorexia. Would repeat echo as well to give us sense of the cardiac function. <ELECTRONICALLY SIGNED> By: Conterras Avalos MD 09/03/19 0753 1429 2059Jopascual Avalos MD /nt
== END 2019-09-01 16:25 | disposition home health service (06) | DRG 177 ==
LOC: M.ERS 14:09 → M.2W 15:32 → M.TBA-ER 15:32 → M.2W 18:02
PROVIDERS: Family Medicine; Internal Medicine; Internal Medicine Cardiovascular Disease; Internal Medicine Critical Care Medicine; Internal Medicine Gastroenterology; Internal Medicine Infectious Disease; Internal Medicine Nephrology; ADMIT Internal Medicine; ATTEND Internal Medicine
DX: J15.6 Pneumonia due to other Gram-negative bacteria (principal); J96.01 Acute respiratory failure with hypoxia; I50.43 Acute on chronic combined systolic (congestive) and diastolic (congestive) heart failure; R65.10 Systemic inflammatory response syndrome (SIRS) of non-infectious origin without acute organ dysfunction; I13.0 Hypertensive heart and chronic kidney disease with heart failure and stage 1 through stage 4 chronic kidney disease, or unspecified chronic kidney disease; N18.4 Chronic kidney disease, stage 4 (severe); J91.8 Pleural effusion in other conditions classified elsewhere; E78.5 Hyperlipidemia, unspecified; M81.0 Age-related osteoporosis without current pathological fracture; I49.5 Sick sinus syndrome; I48.0 Paroxysmal atrial fibrillation; E11.22 Type 2 diabetes mellitus with diabetic chronic kidney disease; D50.9 Iron deficiency anemia, unspecified; R91.8 Other nonspecific abnormal finding of lung field; Z20.828 Contact with and (suspected) exposure to other viral communicable diseases; Z95.0 Presence of cardiac pacemaker; Z79.01 Long term (current) use of anticoagulants; Z79.899 Other long term (current) drug therapy; Z79.4 Long term (current) use of insulin; Z88.1 Allergy status to other antibiotic agents; Z88.8 Allergy status to other drugs, medicaments and biological substances; Z90.49 Acquired absence of other specified parts of digestive tract; Z90.710 Acquired absence of both cervix and uterus

== ENCOUNTER → 2021-04-08 | Outpatient (CLI) | payer MEDICARE, OTHER ==
[~2021-04-08] MED LIST changes: +AMIODARONE HCL400 MG PO; +BUMEX2 MG PO; +CARVEDILOL25 MG PO; +DOXYCYCLINE 10100 MG PO; +PACERONE 200 M200 M1 PO; +PREDNISONE 10 M10 MG PO; +TEMOVATE15 GM TOP
--- NOTE | ~2021-04-08 | CARD ---
[address] [address] CARDIAC CATH REPORT Name: STEPHANIEJEREMYJOSUÉROXANNE J [id number] Admission: 04/08/21 Attend Phys: José Miguel Gillette MD Discharge: Date of : 33 Report #: [id number] THIS REPORT FOR: cc: Bam Crabtree MD, Matthew D MD Liston, Michael J. MD [facility] ~ DATE OF SERVICE: 04/08/2021 PROCEDURE: DC cardioversion. INDICATION: Persistent atrial fibrillation. DESCRIPTION OF PROCEDURE: After informed consent was obtained, the patient was brought to the cardiac holding area. The patient was attached to the manager monitoring and noted to be in persistent atrial fibrillation. After informed consent was obtained, the patient was given intravenous Versed and fentanyl for conscious sedation. The patient received 3 mg of intravenous Versed and 75 mg of fentanyl. Once the patient was adequately sedated, she was cardioverted from atrial fibrillation to an AV paced rhythm with a single biphasic shock of 300 joules. The patient tolerated the procedure well without complication. IMPRESSION: 1. Persistent atrial fibrillation. 2. Successful direct current cardioversion to an AV paced rhythm. By: [id number] Gillette, MD, FACC /nt
[2021-04-08 15:17] VITALS: BP 132/65
[2021-04-08 15:19] VITALS: BP 137/65
[2021-04-08 15:22] VITALS: BP 145/46
[2021-04-08 15:23] VITALS: BP 145/46
[2021-04-08 15:25] VITALS: BP 135/53
[2021-04-08 15:31] VITALS: BP 127/48
== END | disposition home or self-care (01) ==
LOC: M.CL 14:00
PROVIDERS: ATTEND Internal Medicine Cardiovascular Disease
DX: I48.19 Other persistent atrial fibrillation (principal); I11.0 Hypertensive heart disease with heart failure; I50.9 Heart failure, unspecified; Z98.890 Other specified postprocedural states; Z79.899 Other long term (current) drug therapy; Z79.01 Long term (current) use of anticoagulants; Z88.8 Allergy status to other drugs, medicaments and biological substances